=== PATIENT | female | born 1950 | race Caucasian/White ===

== ENCOUNTER 2016-06-22 21:39 | Emergency (ER) | payer MEDICARE, BC ==
[2016-06-22] MEDS ORDERED: MECLIZINE 12.5 MG TAB PO STA ×2 (22:31→23:24)
--- NOTE | 2016-06-22 22:57 | ED ---
General Adult HPI - General Chief complaint: Headache Stated complaint: Double Vision/Head Pain Time Seen by Provider: 06/22/16 22:16 Source: patient, family, RN notes reviewed Mode of arrival: ambulatory Limitations: no limitations - History of Present Illness Initial comments: 66-year-old female presenting for headache and dizziness. Patient states the symptoms been present for the past 2 weeks intermittently. She states dizziness is made worse when she lays down and closes her eyes. She states that she is also had some intermittent headaches. She denies any active headache at this time. Although she does state that she feels some mild sensation of her head spinning when she turns her head. She denies any chest pain or shortness of breath. She has seen her PCP twice in the last week for this. She is currently in the process of outpatient workup for cardiac evaluation. She denies any CP or SOB associated. She denies any history of significant medical problems. She does state that she takes number of herbal supplements. She also takes Seroquel daily. She states that she has had some episodes of nausea associated with her dizziness spells, but no vomiting. She states she tried a papaya supplement which seemed to help this. Her states she's been up and pacing because she feels nauseous when the episodes occur and he thinks she's having a panic attack. - Related Data Home Medications Medication Instructions Recorded Confirmed QUEtiapine [SEROquel] 75 mg PO HS 06/22/16 06/22/16 Previous Rx's Medication Instructions Recorded Meclizine [Antivert] 25 mg PO Q6HR PRN #16 tab 06/22/16 Ondansetron Odt [Zofran Odt] 4 mg PO Q8HR PRN #12 tab 06/22/16 Allergies Allergy/AdvReac Type Severity Reaction Status Date / Time codeine Allergy Unknown Verified 06/22/16 22:19 Iodinated Contrast Media - Allergy Unknown Verified 06/22/16 22:20 Oral and Review of Systems ROS Statement: Those systems with pertinent positive or pertinent negative responses have been documented in the HPI. ROS Other: All systems not noted in ROS Statement are negative. Past Medical History Past Medical History: Asthma Additional Past Medical History / Comment(s): emphysema History of Any Multi-Drug Resistant Organisms: None Reported Past Surgical History: Back Surgery, Hysterectomy Additional Past Surgical History / Comment(s): rhinoplasty, Past Psychological History: No Psychological Hx Reported Smoking Status: Never smoker Past Alcohol Use History: None Reported Past Drug Use History: None Reported General Exam - General Exam Comments Initial Comments: General: Awake and Alert. No acute distress. Does not appear acutely ill. Eyes: BEBETO, EOM intact. No nystagmus. No scleral icterus. HENT: Atraumatic, normocephalic. Mucous membranes moist. Trachea midline. Neck: The neck is supple, there is no tenderness or JVD. Cardiovascular: Regular rate and rhythm. No murmur, rub, or gallop is appreciated. Distal pulses intact. Respiratory: Lungs are clear to auscultation bilaterally. No wheezes, rales, rhonchi. No respiratory distress. Gastrointestinal: Soft, Nontender. No rebound or guarding. Non-distended. No masses or organomegaly noted. No CVA tenderness. Musculoskeletal: No tenderness. Normal ROM. No gross deformity. No strength deficits. Neurological: A&Ox3. CN II-XII grossly intact, There are no obvious motor or sensory deficits. Coordination appears grossly intact. Speech is normal. Normal gait. Skin: Skin is warm and dry and no rashes or lesions are noted. Psychiatric: Cooperative. Flat affect. Appears anxious. Limitations: no limitations Course Vital Signs 06/22/16 21:48 Temperature 97.4 F L Pulse Rate 80 Respiratory 16 Rate Blood Pressure 129/64 O2 Sat by Pulse 97 Oximetry Medical Decision Making - Medical Decision Making 66-year-old female presenting for intermittent headaches and dizziness. She denies any significant medical history. Vitals are stable, afebrile. She denies any fall or head injury. She denies any significant history concerning for intracranial bleed. She denies any family history of SAH. Patient with normal gait and no evidence of acute neurological deficits. She denies any visual changes at this time. Patient description of symptoms appear consistent with peripheral vertigo. She states most of these symptoms began to occur after she had ears irrigated for cerumen impaction in her PCPs office 2 weeks ago. She has no neurological deficits or gait disturbances concerning for central vertigo or CVA at this time. She also states takes number of herbal supplements. We had a discussion of uncertain ingredients in these types of medications and possible interactions with each other and her Seroquel. Patient has had workup by her PCP over the last 2 weeks. Exam is otherwise benign at this time. Discussed symptomatic management and recommended Valium as there is likely some anxiety component to this, but the patient "states I don 't want to be on those types of medications." Discussed Antivert which she agreed to. Pt was given this medication with improvement of her symptoms. Also given dose of Antivert and Zofran to take home so she can fill Rx in the morning. Discussed Tylenol or Motrin for headaches as needed. Patient otherwise appears stable and does not appear to require labs or imaging at this time. She states her PCP did lab work a few days ago and she states it was all normal. Discussed continued close follow-up with PCP. Discussed concerning signs symptoms for immediate return to the ED and that I will be here tomorrow for reevaluation if needed. Patient and are agreeable with plan and discharge home. Disposition Clinical Impression: Nonintractable headache, Dizziness Disposition: HOME SELF-CARE Condition: Stable Instructions: Acute Headache (ED), Dizziness (ED) Prescriptions: Meclizine [Antivert] 25 mg PO Q6HR PRN #16 tab PRN Reason: dizziness Ondansetron Odt [Zofran Odt] 4 mg PO Q8HR PRN #12 tab PRN Reason: Nausea Referrals: Nonstaff,Physician [Primary Care Provider] - 1-2 days Time of Disposition: 23:25
[2016-06-22] MEDS ORDERED: ONDANSETRON ODT 4 MG TAB PO STA (23:24)
[2016-06-22 23:32] VITALS: BP 128/67; PULSE 77; RESP 18; TEMP 96.8
== END 2016-06-22 23:32 | disposition home or self-care (01) ==
LOC: EC 21:39
DX: R51 Headache (principal); R42 Dizziness and giddiness; R11.0 Nausea; Z79.899 Other long term (current) drug therapy; Z88.5 Allergy status to narcotic agent; Z91.041 Radiographic dye allergy status
CPT/HCPCS: 99283

== ENCOUNTER 2021-02-28 05:48 | Emergency (ER) | payer MEDICARE ==
[2021-02-28] MEDS ORDERED: SODIUM CHLORIDE 0.9% 500 ML 500 ML IV STA (06:17)
[2021-02-28] MEDS ORDERED: ONDANSETRON 4 MG/2 ML VIAL IVP STA (06:17)
[2021-02-28] MEDS ORDERED: ALBUTEROL HFA INHALER INHALATION STA (06:24)
--- NOTE | 2021-02-28 06:26 | ED ---
General Adult HPI - General Chief complaint: Abdominal Pain Stated complaint: Abd.Pain,Nausa,Constipated Time Seen by Provider: 02/28/21 06:12 Source: patient, RN notes reviewed Mode of arrival: ambulatory Limitations: no limitations - History of Present Illness Initial comments: 71-year-old female presents emergency department tingling abdominal pain. She's been having increased abdominal pain last few days. Patient states she's felt constipated, having increased bloating, distention of her abdomen. She denies any fevers or chills denies any dysuria hematuria she's had prior hysterectomy. Patient states that the pain is in her lower abdomen denies any chest pain no fever patient states she has COPD which is severe. Patient denies any cough or URI symptoms. - Related Data Home Medications Medication Instructions Recorded Confirmed Acetaminophen Tab [Tylenol Tab] 1,000 mg PO Q6H PRN 02/28/21 02/28/21 Amoxicillin 1,000 mg PO ONCE 02/28/21 02/28/21 Ascorbic Acid [Vitamin C] 500 mg PO DAILY 02/28/21 02/28/21 Calcium Carbonate [Calcium] 600 mg PO DAILY 02/28/21 02/28/21 Cholecalciferol [Vitamin D3 (25 25 mcg PO DAILY 02/28/21 02/28/21 Mcg = 1000 Iu)] Cinnamon Bark [Cinnamon] 500 mg PO DAILY 02/28/21 02/28/21 Green Tea [place] Extract [Green Tea 150 mg PO DAILY 02/28/21 02/28/21 Extract] Melatonin [Melatonin Disolving] 12 mg PO HS 02/28/21 02/28/21 Multivitamins, Thera [Multivitamin 1 tab PO DAILY 02/28/21 02/28/21 (formulary)] [place]-3 Fatty Acids/Fish Oil [Fish 1 cap PO DAILY 02/28/21 02/28/21 Oil 1,000 mg Softgel] QUEtiapine [SEROquel] 25 mg PO HS 02/28/21 02/28/21 Ubidecarenone [Co Q-10] 100 mg PO DAILY 02/28/21 02/28/21 Zinc 50 mg PO DAILY 02/28/21 02/28/21 Allergies Allergy/AdvReac Type Severity Reaction Status Date / Time bee venom protein (honey bee) Allergy Anaphylaxis Verified 12/13/21 08:19 codeine Allergy Unknown Verified 02/28/21 08:19 Iodinated Contrast Media Allergy Unknown Verified 02/28/21 08:19 [Iodinated Contrast Media - Oral and] Review of Systems ROS Statement: Those systems with pertinent positive or pertinent negative responses have been documented in the HPI. ROS Other: All systems not noted in ROS Statement are negative. Past Medical History Past Medical History: Asthma, COPD Additional Past Medical History / Comment(s): emphysema History of Any Multi-Drug Resistant Organisms: None Reported Past Surgical History: Back Surgery, Hysterectomy Additional Past Surgical History / Comment(s): rhinoplasty, Past Psychological History: No Psychological Hx Reported Smoking Status: Never smoker Past Alcohol Use History: None Reported Past Drug Use History: None Reported General Exam Limitations: no limitations General appearance: alert, in no apparent distress Head exam: Present: atraumatic, normocephalic, normal inspection Eye exam: Present: normal appearance, PERRL, EOMI. Absent: scleral icterus, conjunctival injection, periorbital swelling ENT exam: Present: normal exam, mucous membranes moist Neck exam: Present: normal inspection. Absent: tenderness, meningismus, lymphadenopathy Respiratory exam: Present: wheezes. Absent: normal lung sounds bilaterally, r espiratory distress, rales, rhonchi, stridor Cardiovascular Exam: Present: regular rate, normal rhythm, normal heart sounds. Absent: systolic murmur, diastolic murmur, rubs, gallop, clicks GI/Abdominal exam: Present: soft, tenderness, normal bowel sounds. Absent: distended, guarding, rebound, rigid Course Vital Signs 02/28/21 02/28/21 02/28/21 05:53 07:51 08:46 Temperature 98.4 F 98.0 F Pulse Rate 96 80 96 Respiratory 20 16 16 Rate Blood Pressure 155/92 137/74 133/70 O2 Sat by Pulse 98 93 L 96 Oximetry Procedures - Rectal Disimpaction Consent Obtained: verbal consent Indication: fecal impaction Procedural Sedation: No Sedation/Analgesia: none Technique: manual disimpaction with gloved finger Result: significant stool output Complications: none Patient Tolerated Procedure: well, no complications Medical Decision Making - Medical Decision Making 71-year-old presented from for abdominal pain. CT showed evidence of constipation which is consistent with patient's history. Labs are essentially unremarkable. Patient did have enema, digital disimpaction patient was able to have bowel movement feels greatly improved will be discharged stable condition. - Lab Data Result diagrams: 02/28/21 06:58 02/28/21 06:58 Lab Results 02/28/21 02/28/21 02/28/21 Range/Units 06:58 06:58 06:58 WBC 11.8 H (3.8-10.6) k/uL RBC 5.43 H (3.80-5.40) m/uL Hgb 15.2 (11.4-16.0) gm/dL Hct 46.9 H (34.0-46.0) % MCV 86.3 (80.0-100.0) fL MCH 28.0 (25.0-35.0) pg MCHC 32.5 (31.0-37.0) g/dL RDW 13.9 (11.5-15.5) % Plt Count 272 (150-450) k/uL MPV 7.7 Neutrophils % 86 % Lymphocytes % 8 % Monocytes % 3 % Eosinophils % 1 % Basophils % 0 % Neutrophils # 10.2 H (1.3-7.7) k/uL Lymphocytes # 0.9 L (1.0-4.8) k/uL Monocytes # 0.4 (0-1.0) k/uL Eosinophils # 0.1 (0-0.7) k/uL Basophils # 0.0 (0-0.2) k/uL Sodium 139 (137-145) mmol/L Potassium 3.9 (3.5-5.1) mmol/L Chloride 101 (98-107) mmol/L Carbon Dioxide 31 H (22-30) mmol/L Anion Gap 7 mmol/L BUN 13 (7-17) mg/dL Creatinine 0.81 (0.52-1.04) mg/dL Est GFR (CKD-EPI)AfAm 86 (>60 ml/min/1.73 sqM) Est GFR (CKD-EPI)NonAf 74 (>60 ml/min/1.73 sqM) Glucose 118 H (74-99) mg/dL Plasma Lactic Acid [place] 1.1 (0.7-2.0) mmol/L Calcium 9.2 (8.4-10.2) mg/dL Total Bilirubin 1.6 H (0.2-1.3) mg/dL AST 28 (14-36) U/L ALT 23 (4-34) U/L Alkaline Phosphatase 78 (38-126) U/L Total Protein 6.9 (6.3-8.2) g/dL Albumin 4.0 (3.5-5.0) g/dL Amylase 62 (30-110) U/L Lipase 118 (23-300) U/L Disposition Clinical Impression: Constipation Disposition: HOME SELF-CARE Condition: Stable Instructions (If sedation given, give patient instructions): Constipation (ED) Additional Instructions: Please return to the Emergency Department if symptoms worsen or any other concerns. Is patient prescribed a controlled substance at d/c from ED?: No Referrals: Ana Maria Caraballo DO [Primary Care Provider] - 1-2 days Time of Disposition: 10:17
--- NOTE | 2021-02-28 07:08 | CT ---
EXAMINATION TYPE: CT abdomen pelvis wo con DATE OF EXAM: 02/28/2021 HISTORY: Abdominal pain, nausea, constipation CT DLP: 1051.4 mGycm. Automated Exposure Control for Dose Reduction was Utilized. TECHNIQUE: CT scan of the abdomen and pelvis is performed without oral or IV contrast. COMPARISON: NONE FINDINGS: Within the limitations of a non-contrast study, the following observations are made. LUNG BASES: Mild left greater than right bibasilar linear scarring and/or atelectasis. LIVER/GB: Multiple calcified dependent gallstones. No surrounding inflammatory change to suggest acut e cholecystitis. PANCREAS: No significant abnormality is seen. SPLEEN: No significant abnormality is seen. 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 KIDNEYS: No renal stones or hydronephrosis seen bilaterally. BOWEL: Small-sized hiatal hernia. Suboptimal evaluation bowel without enteric contrast. No suspicious small or large bowel dilatation. Fairly moderate diffuse colonic fecal prominence. Occasional scatte red colonic diverticula. No CT evidence for acute diverticulitis. Normal-appearing appendix from base of cecum. GENITAL ORGANS: Uterus surgically absent. Few scattered calcified pelvic phleboliths. LYMPH NODES: No greater than 1cm abdominal or pelvic lymph nodes are appreciated. OSSEOUS STRUCTURES: Moderate spurring throughout the lumbar spine. Moderate to severe disc space narr owing L4-L5 level. Prominent Schmorl node superior L2 endplate. Sacralized right L5 segment. Multilev el facet arthropathy in the lumbar spine. Moderate axial joint space loss and spurring in both hips. Pubic symphysis narrowing and spurring. OTHER: Moderate calcified plaque of the aorta extends into branch vessels. IMPRESSION: No bowel obstruction. Moderate diffuse colonic fecal stasis is present.
[2021-02-28 07:15] LABS: Basophils % (A) 0 %; Eosinophils # (A) 0.1 k/uL (0-0.7); Eosinophils % (A) 1 %; HCT 46.9 % (34.0-46.0); HGB 15.2 gm/dL (11.4-16.0); Lymphocytes # (A) 0.9 k/uL (1.0-4.8); Lymphocytes % (A) 8 %; MCHC 32.5 g/dL (31.0-37.0); MCV 86.3 fL (80.0-100.0); Mean Platelet Volume 7.7; Monocytes # (A) 0.4 k/uL (0-1.0); Monocytes % (A) 3 %; Neutrophils # (A) 10.2 k/uL (1.3-7.7); Neutrophils % (A) 86 %; Platelet Count 272 k/uL (150-450); RBC 5.43 m/uL (3.80-5.40); RDW 13.9 % (11.5-15.5); WBC 11.8 k/uL (3.8-10.6)
[2021-02-28 07:33] LABS: Calcium 9.2 mg/dL (8.4-10.2); Potassium 3.9 mmol/L (3.5-5.1); Total Bilirubin 1.6 mg/dL (0.2-1.3); Total Protein 6.9 g/dL (6.3-8.2)
[2021-02-28 07:53] VITALS: RESP 16; TEMP 98
[2021-02-28 11:16] VITALS: BP 149/78; PULSE 99
== END 2021-02-28 11:07 | disposition home or self-care (01) ==
LOC: EC 05:48
DX: K59.00 Constipation, unspecified (principal); J44.9 Chronic obstructive pulmonary disease, unspecified
CPT/HCPCS: 36415; 80053; 82150; 83605; 83690; 85025; 74176; 99284; 96374; J2405

== ENCOUNTER 2021-06-17 20:08 | Emergency (ER) | payer MEDICARE ==
[2021-06-18 01:46] VITALS: RESP 18; TEMP 97.3
[2021-06-18 01:59] LABS: Basophils % (A) 1 %; Eosinophils # (A) 0.1 k/uL (0-0.7); Eosinophils % (A) 2 %; HCT 50.5 % (34.0-46.0); HGB 16.3 gm/dL (11.4-16.0); Lymphocytes # (A) 1.5 k/uL (1.0-4.8); Lymphocytes % (A) 19 %; MCH 28.1 pg (25.0-35.0); MCHC 32.4 g/dL (31.0-37.0); MCV 86.6 fL (80.0-100.0); Mean Platelet Volume 7.6; Monocytes # (A) 0.4 k/uL (0-1.0); Monocytes % (A) 5 %; Neutrophils # (A) 5.6 k/uL (1.3-7.7); Neutrophils % (A) 71 %; Platelet Count 279 k/uL (150-450); RBC 5.82 m/uL (3.80-5.40); RDW 14.1 % (11.5-15.5); WBC 7.8 k/uL (3.8-10.6)
--- NOTE | 2021-06-18 02:08 | XR ---
EXAMINATION TYPE: XR KUB DATE OF EXAM: 06/18/2021 COMPARISON: NONE HISTORY: Pain TECHNIQUE: 2 views upright FINDINGS: There is no sign of intestinal obstruction or pneumoperitoneum. There are numerous calcifie d gallstones. There is no evidence of a mass. There is some mild pleural reaction at the lateral left lung base. IMPRESSION: Nonacute abdomen. Cholelithiasis.
[2021-06-18 02:15] LABS: Albumin 4.3 g/dL (3.5-5.0); Calcium 9.1 mg/dL (8.4-10.2); Total Bilirubin 1.8 mg/dL (0.2-1.3); Total Protein 7.6 g/dL (6.3-8.2)
[2021-06-18 04:51] LABS: Appearance,Urine Cloudy (Clear); Bacteria,Urine Many /hpf; Bilirubin,Urine Negative (Negative); Blood,Urine Negative (Negative); Color,Urine Yellow; Glucose,Urine (UA) Negative (Negative); Hyaline Casts,Urine 1 /lpf (0-2); Ketones,Urine Negative (Negative); Leukocyte Esterase,Urine Moderate (Negative); Mucus,Urine Moderate /hpf; Nitrite,Urine Negative (Negative); Protein,Urine Negative (Negative); RBC,Urine 3 /hpf (0-5); Specific Gravity,Urine 1.013 (1.001-1.035); Squamous Epithelial Cell,Urine 15 /hpf (0-4); Urobilinogen,Urine <2.0 mg/dL (<2.0); WBC,Urine 6 /hpf (0-5)
--- NOTE | 2021-06-18 05:17 | ED ---
General Adult HPI - General Chief complaint: Back Pain/Injury Stated complaint: Abd.Pain Time Seen by Provider: 06/18/21 04:56 Source: patient Mode of arrival: wheelchair - History of Present Illness Initial comments: This patient is a 71-year-old woman with history of previous constipation requiring disimpaction, who presents with complaint that she states it is a recurrence. She is having low abdomen and low back pain. She describes it as cramping and bloating. She feels like she needs to pass a bowel movement but has not been able. Last bowel movement was prior to last Sunday. She did see her physician and they are giving her MiraLAX. She states it's not helping. She does pass gas. While waiting to be seen here she did have some nausea and vomited once. -: days(s) Location: back, abdomen Radiation: non-radiation Quality: other (Bloating and cramping) Consistency: intermittent Improves with: none Worsens with: none Associated Symptoms: denies other symptoms Treatments Prior to Arrival: none - Related Data Home Medications Medication Instructions Recorded Confirmed Acetaminophen Tab [Tylenol Tab] 1,000 mg PO Q6H PRN 02/28/21 02/28/21 Amoxicillin 1,000 mg PO ONCE 02/28/21 02/28/21 Ascorbic Acid [Vitamin C] 500 mg PO DAILY 02/28/21 02/28/21 Calcium Carbonate [Calcium] 600 mg PO DAILY 02/28/21 02/28/21 Cholecalciferol [Vitamin D3 (25 25 mcg PO DAILY 02/28/21 02/28/21 Mcg = 1000 Iu)] Cinnamon Bark [Cinnamon] 500 mg PO DAILY 02/28/21 02/28/21 Green Tea [place] Extract [Green Tea 150 mg PO DAILY 02/28/21 02/28/21 Extract] Melatonin [Melatonin Disolving] 12 mg PO HS 02/28/21 02/28/21 Multivitamins, Thera [Multivitamin 1 tab PO DAILY 02/28/21 02/28/21 (formulary)] [place]-3 Fatty Acids/Fish Oil [Fish 1 cap PO DAILY 02/28/21 02/28/21 Oil 1,000 mg Softgel] QUEtiapine [SEROquel] 25 mg PO HS 02/28/21 02/28/21 Ubidecarenone [Co Q-10] 100 mg PO DAILY 02/28/21 02/28/21 Zinc 50 mg PO DAILY 02/28/21 02/28/21 Allergies Allergy/AdvReac Type Severity Reaction Status Date / Time bee venom protein (honey bee) Allergy Anaphylaxis Verified 02/28/21 08:19 codeine Allergy Unknown Verified 02/28/21 08:19 Iodinated Contrast Media Allergy Unknown Verified 02/28/21 08:19 [Iodinated Contrast Media - Oral and] Review of Systems ROS Statement: Those systems with pertinent positive or pertinent negative responses have been documented in the HPI. ROS Other: All systems not noted in ROS Statement are negative. Constitutional: Denies: fever, chills Respiratory: Denies: cough, dyspnea Cardiovascular: Denies: chest pain, palpitations Gastrointestinal: Reports: as per HPI, abdominal pain, nausea, vomiting, constipation. Denies: melena, hematochezia Genitourinary: Denies: dysuria, frequency, hematuria Musculoskeletal: Reports: as per HPI, back pain Skin: Denies: rash Neurological: Denies: headache Past Medical History Past Medical History: Asthma, COPD Additional Past Medical History / Comment(s): emphysema History of Any Multi-Drug Resistant Organisms: None Reported Past Surgical History: Back Surgery, Hysterectomy Additional Past Surgical History / Comment(s): rhinoplasty, Past Psychological History: No Psychological Hx Reported Smoking Status: Never smoker Past Alcohol Use History: None Reported Past Drug Use History: None Reported General Exam General appearance: alert, in no apparent distress Head exam: Present: atraumatic, normocephalic Eye exam: Present: normal appearance. Absent: scleral icterus, conjunctival injection Respiratory exam: Present: normal lung sounds bilaterally. Absent: respiratory distress, wheezes, rales, rhonchi Cardiovascular Exam: Present: regular rate, normal rhythm, normal heart sounds. Absent: systolic murmur, diastolic murmur, rubs, gallop GI/Abdominal exam: Present: soft. Absent: distended, tenderness, guarding, rebound, rigid, mass, pulsatile mass, hernia Rectal exam: Present: normal inspection, normal rectal tone, fecal impaction. Absent: hemorrhoids, mass, tenderness Extremities exam: Present: normal inspection Back exam: Present: normal inspection Neurological exam: Present: alert Skin exam: Present: warm, dry, intact, normal color. Absent: rash Course Vital Signs 06/17/21 06/18/2106/18/22 21:37 01:45 06:37 Temperature 97.8 F 97.3 F L Pulse Rate 97 98 89 Respiratory 16 18 18 Rate Blood Pressure 151/81 166/84 145/87 O2 Sat by Pulse 94 L 97 95 Oximetry Medical Decision Making - Medical Decision Making Patient is 71-year-old woman here with constipation. I did perform a bedside disimpaction with nursing present as intrusion analyst. Following this patient had an enema with further stool passed following the enema. She is feeling better and would like to go home. Did provide additional oral medication for home use. Discussed appropriate further care and follow-up as well as return parameters - Lab Data Result diagrams: 06/18/21 01:45 06/18/21 01:45 Lab Results 06/18/21 06/18/21 06/18/21 Range/Units 01:45 01:45 04:05 WBC 7.8 (3.8-10.6) k/uL RBC 5.82 H (3.80-5.40) m/uL Hgb 16.3 H (11.4-16.0) gm/dL Hct 50.5 H (34.0-46.0) % MCV 86.6 (80.0-100.0) fL MCH 28.1 (25.0-35.0) pg MCHC 32.4 (31.0-37.0) g/dL RDW 14.1 (11.5-15.5) % Plt Count 279 (150-450) k/uL MPV 7.6 Neutrophils % 71 % Lymphocytes % 19 % Monocytes % 5 % Eosinophils % 2 % Basophils % 1 % Neutrophils # 5.6 (1.3-7.7) k/uL Lymphocytes # 1.5 (1.0-4.8) k/uL Monocytes # 0.4 (0-1.0) k/uL Eosinophils # 0.1 (0-0.7) k/uL Basophils # 0.0 (0-0.2) k/uL Sodium 139 (137-145) mmol/L Potassium 4.0 (3.5-5.1) mmol/L Chloride 105 (98-107) mmol/L Carbon Dioxide 26 (22-30) mmol/L Anion Gap 8 mmol/L BUN 11 (7-17) mg/dL Creatinine 0.81 (0.52-1.04) mg/dL Est GFR (CKD-EPI)AfAm 86 (>60 ml/min/1.73 sqM) Est GFR (CKD-EPI)NonAf 74 (>60 ml/min/1.73 sqM) Glucose 103 H (74-99) mg/dL Calcium 9.1 (8.4-10.2) mg/dL Total Bilirubin 1.8 H (0.2-1.3) mg/dL AST 30 (14-36) U/L ALT 27 (4-34) U/L Alkaline Phosphatase 79 (38-126) U/L Total Protein 7.6 (6.3-8.2) g/dL Albumin 4.3 (3.5-5.0) g/dL Urine Color Yellow Urine Appearance Cloudy H (Clear) Urine pH 6.0 (5.0-8.0) Ur Specific [place] 1.013 (1.001-1.035) Urine Protein Negative (Negative) Urine Glucose (UA) Negative (Negative) Urine Ketones Negative (Negative) Urine Blood Negative (Negative) Urine Nitrite Negative (Negative) Urine Bilirubin Negative (Negative) Urine Urobilinogen <2.0 (<2.0) mg/dL Ur Leukocyte Esterase Moderate H (Negative) Urine RBC 3 (0-5) /hpf Urine WBC 6 H (0-5) /hpf Ur Squamous Epith Cells 15 H (0-4) /hpf Urine Bacteria Many H (None) /hpf Hyaline Casts 1 (0-2) /lpf Urine Mucus Moderate H (None) /hpf Disposition Clinical Impression: Constipation Disposition: HOME SELF-CARE Condition: Good Instructions (If sedation given, give patient instructions): Constipation (ED) Is patient prescribed a controlled substance at d/c from ED?: No Referrals: Ana Maria Caraballo DO [Primary Care Provider] - 1-2 days Time of Disposition: 06:05
[2021-06-18] MEDS ORDERED: PEG 3350-NA SULF,BICARB,CL/KCL 4,000 ML BOTTLE PO ONE (06:10)
[2021-06-18 06:38] VITALS: BP 145/87; PULSE 89
== END 2021-06-18 06:38 | disposition home or self-care (01) ==
LOC: EC 20:08
DX: K59.00 Constipation, unspecified (principal); J44.9 Chronic obstructive pulmonary disease, unspecified; Z79.899 Other long term (current) drug therapy
CPT/HCPCS: 36415; 74018; 80053; 81001; 85025; 99284

== ENCOUNTER 2021-09-02 09:07 | Emergency (ER) | payer MEDICARE ==
[2021-09-02 09:12] VITALS: TEMP 98.3
[2021-09-02] MEDS ORDERED: METOCLOPRAMIDE 5 MG/ML 2 ML VIAL IVP STA (10:08)
[2021-09-02] MEDS ORDERED: SODIUM CHLORIDE 0.9% 1,000 ML IV STA (10:08)
[2021-09-02] MEDS ORDERED: diphenhydrAMINE 50 MG/ML 1 ML VIAL IVP STA (10:08)
--- NOTE | 2021-09-02 10:11 | ED ---
General Adult HPI - General Chief complaint: Headache Stated complaint: Headache Time Seen by Provider: 09/02/21 09:37 Source: patient, RN notes reviewed Mode of arrival: ambulatory Limitations: no limitations - History of Present Illness Initial comments: Patient is a pleasant 71-year-old female presenting to the emergency Department with headache. Onset of symptoms was around 3:30 or 4 in the morning when she woke from sleep. Headache is 7/10. Mild nausea. Mild photophobia. No history of chronic headaches. Patient does have some paresthesias of her right thumb. Patient is able to move it without difficulty. No loss of sensation. No weak ness. - Related Data Home Medications Medication Instructions Recorded Confirmed Calcium Carbonate [Calcium] 600 mg PO DAILY 02/28/21 09/02/21 Cinnamon Bark [Cinnamon] 500 mg PO DAILY 02/28/21 09/02/21 Green Tea [place] Extract [Green Tea 150 mg PO DAILY 02/28/21 09/02/21 Extract] Multivitamins, Thera [Multivitamin 1 tab PO DAILY 02/28/21 09/02/21 (formulary)] [place]-3 Fatty Acids/Fish Oil [Fish 1 cap PO DAILY 02/28/21 09/02/21 Oil 1,000 mg Softgel] QUEtiapine [SEROquel] 25 - 50 mg PO HS 02/28/21 09/02/21 Ubidecarenone [Co Q-10] 100 mg PO DAILY 02/28/21 09/02/21 Allergies Allergy/AdvReac Type Severity Reaction Status Date / Time bee venom protein (honey bee) Allergy Anaphylaxis Verified 09/02/21 10:09 codeine Allergy Unknown Verified 09/02/21 10:09 Iodinated Contrast Media Allergy Unknown Verified 09/02/21 10:09 [Iodinated Contrast Media - Oral and] Review of Systems ROS Statement: Those systems with pertinent positive or pertinent negative responses have been documented in the HPI. ROS Other: All systems not noted in ROS Statement are negative. Constitutional: Denies: fever Eyes: Denies: eye pain ENT: Denies: ear pain Respiratory: Denies: cough Cardiovascular: Denies: chest pain Endocrine: Denies: fatigue Gastrointestinal: Denies: abdominal pain Genitourinary: Denies: dysuria Musculoskeletal: Denies: back pain Skin: Denies: rash Neurological: Reports: as per HPI, headache, paresthesias. Denies: weakness Past Medical History Past Medical History: Asthma, COPD Additional Past Medical History / Comment(s): emphysema History of Any Multi-Drug Resistant Organisms: None Reported Past Surgical History: Back Surgery, Hysterectomy Additional Past Surgical History / Comment(s): rhinoplasty, Past Psychological History: No Psychological Hx Reported Smoking Status: Never smoker Past Alcohol Use History: None Reported Past Drug Use History: None Reported General Exam Limitations: no limitations General appearance: alert, in no apparent distress Head exam: Present: atraumatic Eye exam: Present: normal appearance, PERRL, EOMI ENT exam: Present: normal oropharynx Neck exam: Present: normal inspection Respiratory exam: Present: normal lung sounds bilaterally Cardiovascular Exam: Present: regular rate, normal rhythm GI/Abdominal exam: Present: soft. Absent: tenderness Extremities exam: Present: normal inspection Neurological exam: Present: alert, oriented X3, CN II-XII intact. Absent: motor sensory deficit Expanded Neurological exam: Present: protecting the airway Patient oriented to: Present: person, place, time Speech: Present: fluid speech Cranial nerves: EOM's Intact: Normal, Facial Sensation: Normal Sensory exam: Upper Extremity Light Touch: Normal, Lower Extremity Light Touch: Normal Motor strength exam: RUE: 5, LUE: 5, RLE: 5, LLE: 5 Eye Response: (4) open spontaneously Motor Response: (6) obeys commands Verbal Response: (5) oriented Psychiatric exam: Present: normal affect, normal mood Skin exam: Present: normal color Course Vital Signs 09/02/21 09:10 Temperature 98.3 F Pulse Rate 101 H Respiratory 16 Rate Blood Pressure 143/78 O2 Sat by Pulse 93 L Oximetry - Reevaluation(s) Reevaluation #1: 09/02/21 10:[address] angiogram with contrast however patient refuses. Patient states she has severe ALLERGY. Patient offered premedication however still refuses. Medical Decision Making - Medical Decision Making Patient reevaluated. Patient states symptoms approximately 50% improved with medications. Patient updated with results. Patient also updated on limitations of results. Patient is made aware of limitations specifically CT scan. Patient is made aware that blockage and evaluation of arteries including aneurysm is limited with regular CT. Patient is offered lumbar puncture however refuses. Patient still refuses CTA. Patient also refuses sedimentation rate. Lab did not have enough blood work and was going to redraw. Patient states he is feeling much better and does request discharge home. - Lab Data Result diagrams: 09/02/21 10:44 09/02/21 10:44 Lab Results 09/02/21 09/02/21 Range/Units 10:44 10:44 WBC 7.8 (3.8-10.6) k/uL RBC 5.36 (3.80-5.40) m/uL Hgb 14.9 (11.4-16.0) gm/dL Hct 46.2 H (34.0-46.0) % MCV 86.2 (80.0-100.0) fL MCH 27.8 (25.0-35.0) pg MCHC 32.3 (31.0-37.0) g/dL RDW 13.9 (11.5-15.5) % Plt Count 297 (150-450) k/uL MPV 7.5 Neutrophils % 76 % Lymphocytes % 12 % Monocytes % 6 % Eosinophils % 3 % Basophils % 1 % Neutrophils # 6.0 (1.3-7.7) k/uL Lymphocytes # 1.0 (1.0-4.8) k/uL Monocytes # 0.5 (0-1.0) k/uL Eosinophils # 0.2 (0-0.7) k/uL Basophils # 0.1 (0-0.2) k/uL Sodium 137 (137-145) mmol/L Potassium 4.9 (3.5-5.1) mmol/L Chloride 106 (98-107) mmol/L Carbon Dioxide 25 (22-30) mmol/L Anion Gap 6 mmol/L BUN 14 (7-17) mg/dL Creatinine 0.87 (0.52-1.04) mg/dL Est GFR (CKD-EPI)AfAm 78 (>60 ml/min/1.73 sqM) Est GFR (CKD-EPI)NonAf 68 (>60 ml/min/1.73 sqM) Glucose 114 H (74-99) mg/dL Calcium 9.3 (8.4-10.2) mg/dL Total Bilirubin 1.4 H (0.2-1.3) mg/dL AST 28 (14-36) U/L ALT 26 (4-34) U/L Alkaline Phosphatase 81 (38-126) U/L Total Protein 6.7 (6.3-8.2) g/dL Albumin 4.0 (3.5-5.0) g/dL - Radiology Data Radiology results: report reviewed (CT brain reveals no acute abnormality. Atrophy.) Disposition Clinical Impression: Cephalgia Disposition: HOME SELF-CARE Condition: Stable Instructions (If sedation given, give patient instructions): Acute Headache (ED) Additional Instructions: Please do follow-up to primary care physician in the next day or 2 for recheck. Return for increased headache, weakness, loss of sensation, vomiting, fever, worsening or changing symptoms or other concerns. Is patient prescribed a controlled substance at d/c from ED?: No Referrals: Ana Maria Caraballo DO [Primary Care Provider] - 1-2 days Time of Disposition: 11:33
[2021-09-02 10:55] LABS: Basophils # (A) 0.1 k/uL (0-0.2); Basophils % (A) 1 %; Eosinophils # (A) 0.2 k/uL (0-0.7); Eosinophils % (A) 3 %; HCT 46.2 % (34.0-46.0); HGB 14.9 gm/dL (11.4-16.0); Lymphocytes % (A) 12 %; MCH 27.8 pg (25.0-35.0); MCHC 32.3 g/dL (31.0-37.0); MCV 86.2 fL (80.0-100.0); Mean Platelet Volume 7.5; Monocytes # (A) 0.5 k/uL (0-1.0); Monocytes % (A) 6 %; Neutrophils % (A) 76 %; Platelet Count 297 k/uL (150-450); RBC 5.36 m/uL (3.80-5.40); RDW 13.9 % (11.5-15.5); WBC 7.8 k/uL (3.8-10.6)
--- NOTE | 2021-09-02 11:02 | CT ---
EXAMINATION TYPE: CT brain wo con DATE OF EXAM: 09/02/2021 COMPARISON: None HISTORY: 71-year-old female Headache and dizziness. TECHNIQUE: Examination was done in axial plane without intravenous contrast. Coronal and sagittal r econstructions performed. CT DLP: 1099.4 mGycm Automated exposure control for dose reduction was used. FINDINGS: There is no evidence of acute intracranial hemorrhage, acute ischemic changes, mass, mass-effect, or extra-axial fluid collection. There is no effacement of cerebral sulci or basal subarachnoid cister ns. There is no hydrocephalus. There is no midline shift. Cox-white matter distinction is preserv ed. Mild age-related generalized parenchymal volume loss. Mild periventricular white matter hypodensities . Paranasal sinuses and mastoid air cells are well pneumatized. Orbits and globes are intact. IMPRESSION: Mild age-related cerebral atrophy and mild burden of chronic small vessel ischemic disease. No acute intracranial abnormality seen.
[2021-09-02 11:07] LABS: Calcium 9.3 mg/dL (8.4-10.2); Potassium 4.9 mmol/L (3.5-5.1); Total Bilirubin 1.4 mg/dL (0.2-1.3); Total Protein 6.7 g/dL (6.3-8.2)
[2021-09-02 11:51] VITALS: BP 154/95; PULSE 89; RESP 18
[2021-09-02 12:15] LABS: Erythrocyte Sedimentation Rate 12 mm/hr (0-20)
== END 2021-09-02 11:51 | disposition home or self-care (01) ==
LOC: EC 09:07
DX: R51.9 Headache, unspecified (principal); R11.0 Nausea; H53.149 Visual discomfort, unspecified; J43.9 Emphysema, unspecified; Z91.030 Bee allergy status; Z88.5 Allergy status to narcotic agent; Z91.041 Radiographic dye allergy status
CPT/HCPCS: 36415; 80053; 85652; 85025; 85730; 70450; 99284; 96374; 96375; 96361; J1200; J2765

== ENCOUNTER 2021-11-04 14:30 | Emergency (ER) | payer MEDICARE ==
[2021-11-04] MEDS ORDERED: ONDANSETRON ODT 8 MG TAB.RAPDIS PO STA (16:05)
--- NOTE | 2021-11-04 16:11 | ED ---
Abdominal Pain HPI - General Chief Complaint: Abdominal Pain Stated Complaint: Abd Pain Time Seen by Provider: 11/04/21 15:50 Source: patient Mode of arrival: wheelchair - History of Present Illness Initial Comments: Patient is a 71-year-old female presents the emergency room with sudden onset of epigastric and right upper quadrant pain that began a few hours ago. She complains of nausea without emesis. She reports that her pain is radiating to her back. She has known gallstone history but denies having an infected gallbladder having her gallbladder removed in the past. She denies any aggravating or alleviating factors. She doesn't took a dose of Compazine orally at home with no improvement in symptoms. She denies any changes in bowel movements, bloody stools, unintentional weight loss, chest pain, shortness of breath, headaches, dizziness, lethargy, confusion, fevers or chills. She has a past medical history significant for COPD and asthma. She does not take any medications except for Seroquel for insomnia on a regular basis. - Related Data Home Medications Medication Instructions Recorded Confirmed Calcium Carbonate [Calcium] 600 mg PO DAILY 02/28/21 09/02/21 Cinnamon Bark [Cinnamon] 500 mg PO DAILY 02/28/21 09/02/21 Green Tea [place] Extract [Green Tea 150 mg PO DAILY 02/28/21 09/02/21 Extract] Multivitamins, Thera [Multivitamin 1 tab PO DAILY 02/28/21 09/02/21 (formulary)] [place]-3 Fatty Acids/Fish Oil [Fish 1 cap PO DAILY 02/28/21 09/02/21 Oil 1,000 mg Softgel] QUEtiapine [SEROquel] 25 - 50 mg PO HS 02/28/21 09/02/21 Ubidecarenone [Co Q-10] 100 mg PO DAILY 02/28/21 09/02/21 Allergies Allergy/AdvReac Type Severity Reaction Status Date / Time bee venom protein (honey bee) Allergy Anaphylaxis Verified 11/04/21 15:05 codeine Allergy Unknown Verified 11/04/21 15:05 Iodinated Contrast Media Allergy Unknown Verified 11/04/21 15:05 [Iodinated Contrast Media - Oral and] Review of Systems ROS Statement: Those systems with pertinent positive or pertinent negative responses have been documented in the HPI. ROS Other: All systems not noted in ROS Statement are negative. Past Medical History Past Medical History: Asthma, COPD Additional Past Medical History / Comment(s): emphysema History of Any Multi-Drug Resistant Organisms: None Reported Past Surgical History: Back Surgery, Hysterectomy Additional Past Surgical History / Comment(s): rhinoplasty, Past Psychological History: No Psychological Hx Reported Smoking Status: Never smoker Past Alcohol Use History: None Reported Past Drug Use History: None Reported General Exam General appearance: alert, in no apparent distress Head exam: Present: atraumatic, normocephalic, normal inspection Eye exam: Present: normal appearance, PERRL, EOMI. Absent: scleral icterus, conjunctival injection, periorbital swelling ENT exam: Present: normal exam, mucous membranes moist Neck exam: Present: normal inspection. Absent: tenderness, meningismus, lymphadenopathy Respiratory exam: Present: normal lung sounds bilaterally. Absent: respiratory distress, wheezes, rales, rhonchi, stridor Cardiovascular Exam: Present: regular rate, normal rhythm, normal heart sounds. Absent: systolic murmur, diastolic murmur, rubs, gallop, clicks GI/Abdominal exam: Present: soft, tenderness (Right upper quadrant and epigastric region), normal bowel sounds. Absent: distended, guarding, rebound, rigid Extremities exam: Present: normal inspection, full ROM, normal capillary refill. Absent: tenderness, pedal edema, joint swelling, calf tenderness Back exam: Present: normal inspection Neurological exam: Present: alert, oriented X3, CN II-XII intact Psychiatric exam: Present: normal affect, normal mood Skin exam: Present: warm, dry, intact, normal color. Absent: rash Course Vital Signs 11/04/21 15:02 Temperature 97.4 F L Pulse Rate 83 Respiratory 16 Rate Blood Pressure 148/71 O2 Sat by Pulse 99 Oximetry Medical Decision Making - Medical Decision Making 71-year-old male presenting to the emergency room with sudden onset of right upper quadrant and epigastric region pain with nausea without emesis. EKG completed in triage. Symptoms discussed with patient. Patient with known gallbladder and previous history of infected constipation. Will check CMP, amylase, lipase, CBC, urinalysis along with CT of the abdomen. Will give Zofran IV for nausea and monitor symptoms. 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 Still with nausea and abdominal pain after Zofran. Computed tomography scan revealed gallstones along with old L2 fracture. Mild elevation in WBCs noted with leukocytosis and rare bacteria noted on urinalysis awaiting CMP results. Will give morphine along with Compazine IV. Symptoms improved with morphine and Compazine. Labs revealed elevated bilirubin, elevated liver enzymes and elevated alk phos. Troponin negative. Lactic acid added. Concern for ductal cholelithiasis. No GI services available here. Discussed concerns with patient and spouse. Patient went for ER toER transfer for GI services at [facility]. Will give a dose of Ancef now and monitor unti l transfer. Case discussed with Dr. Childress. Dr. Harrington accepting physician at [facility] ER. - Lab Data Result diagrams: 11/04/21 16:19 11/04/21 16:19 Lab Results 11/04/21 11/04/21 11/04/21 Range/Units 16:19 16:19 16:19 WBC 13.8 H (3.8-10.6) k/uL RBC 5.99 H (3.80-5.40) m/uL Hgb 16.0 (11.4-16.0) gm/dL Hct 52.4 H (34.0-46.0) % MCV 87.4 (80.0-100.0) fL MCH 26.7 (25.0-35.0) pg MCHC 30.5 L (31.0-37.0) g/dL RDW 13.6 (11.5-15.5) % Plt Count 267 (150-450) k/uL MPV 8.0 Neutrophils % 94 % Lymphocytes % 3 % Monocytes % 2 % Eosinophils % 0 % Basophils % 0 % Neutrophils # 13.0 H (1.3-7.7) k/uL Lymphocytes # 0.5 L (1.0-4.8) k/uL Monocytes # 0.3 (0-1.0) k/uL Eosinophils # 0.0 (0-0.7) k/uL Basophils # 0.0 (0-0.2) k/uL Sodium 139 (137-145) mmol/L Potassium 4.5 (3.5-5.1) mmol/L Chloride 100 (98-107) mmol/L Carbon Dioxide 24 (22-30) mmol/L Anion Gap 15 mmol/L BUN 16 (7-17) mg/dL Creatinine 0.76 (0.52-1.04) mg/dL Est GFR (CKD-EPI)AfAm >90 (>60 ml/min/1.73 sqM) Est GFR (CKD-EPI)NonAf 80 (>60 ml/min/1.73 sqM) Glucose 157 H (74-99) mg/dL Calcium 10.1 (8.4-10.2) mg/dL Total Bilirubin 3.0 H (0.2-1.3) mg/dL AST 495 H (14-36) U/L ALT 300 H (4-34) U/L Alkaline Phosphatase 153 H (38-126) U/L Troponin I (0.000-0.034) ng/mL Total Protein 7.5 (6.3-8.2) g/dL Albumin 4.5 (3.5-5.0) g/dL Amylase 73 (30-110) U/L Lipase 189 (23-300) U/L Urine Color Yellow Urine Appearance Cloudy H (Clear) Urine pH 7.0 (5.0-8.0) Ur Specific [place] 1.028 (1.001-1.035) Urine Protein Trace H (Negative) Urine Glucose (UA) Negative (Negative) Urine Ketones 1+ H (Negative) Urine Blood Negative (Negative) Urine Nitrite Negative (Negative) Urine Bilirubin Negative (Negative) Urine Urobilinogen 2.0 (<2.0) mg/dL Ur Leukocyte Esterase Small H (Negative) Urine RBC 3 (0-5) /hpf Urine WBC 2 (0-5) /hpf Ur Squamous Epith Cells 42 H (0-4) /hpf Urine Bacteria Rare H (None) /hpf Urine Mucus Occasional H (None) /hpf 11/04/21 Range/Units 17:08 WBC (3.8-10.6) k/uL RBC (3.80-5.40) m/uL Hgb (11.4-16.0) gm/dL Hct (34.0-46.0) % MCV (80.0-100.0) fL MCH (25.0-35.0) pg MCHC (31.0-37.0) g/dL RDW (11.5-15.5) % Plt Count (150-450) k/uL MPV Neutrophils % % Lymphocytes % % Monocytes % % Eosinophils % % Basophils % % Neutrophils # (1.3-7.7) k/uL Lymphocytes # (1.0-4.8) k/uL Monocytes # (0-1.0) k/uL Eosinophils # (0-0.7) k/uL Basophils # (0-0.2) k/uL Sodium (137-145) mmol/L Potassium (3.5-5.1) mmol/L Chloride (98-107) mmol/L Carbon Dioxide (22-30) mmol/L Anion Gap mmol/L BUN (7-17) mg/dL Creatinine (0.52-1.04) mg/dL Est GFR (CKD-EPI)AfAm (>60 ml/min/1.73 sqM) Est GFR (CKD-EPI)NonAf (>60 ml/min/1.73 sqM) Glucose (74-99) mg/dL Calcium (8.4-10.2) mg/dL Total Bilirubin (0.2-1.3) mg/dL AST (14-36) U/L ALT (4-34) U/L Alkaline Phosphatase (38-126) U/L Troponin I <0.012 (0.000-0.034) ng/mL Total Protein (6.3-8.2) g/dL Albumin (3.5-5.0) g/dL Amylase (30-110) U/L Lipase (23-300) U/L Urine Color Urine Appearance (Clear) Urine pH (5.0-8.0) Ur Specific [place] (1.001-1.035) Urine Protein (Negative) Urine Glucose (UA) (Negative) Urine Ketones (Negative) Urine Blood (Negative) Urine Nitrite (Negative) Urine Bilirubin (Negative) Urine Urobilinogen (<2.0) mg/dL Ur Leukocyte Esterase (Negative) Urine RBC (0-5) /hpf Urine WBC (0-5) /hpf Ur Squamous Epith Cells (0-4) /hpf Urine Bacteria (None) /hpf Urine Mucus (None) /hpf - EKG Data EKG Comments: Sinus rhythm with right bundle tommy block, possible old anterior myocardial infarct, ventricular rate 80 bpm, MN interval 197 ms, QRS duration 142 ms, QT/QTc 144/477 ms, PRT axes 72, -58, 62 Disposition Clinical Impression: Transaminitis, Hyperbilirubinemia, Right upper quadrant pain Disposition: OTHER INSTITUTION NOT DEFINED Condition: Stable Is patient prescribed a controlled substance at d/c from ED?: No Referrals: Ana Maria Caraballo DO [Primary Care Provider] - 1-2 days Time of Disposition: 18:43 - Out of Hospital Transfer - Req. Specs Out of Hospital Transfer - Requested Specifics: Other Emergency Center ([facility])
[2021-11-04] MEDS ORDERED: ONDANSETRON 4 MG/2 ML VIAL IVP STA (16:26)
[2021-11-04 16:59] LABS: Basophils % (A) 0 %; Eosinophils % (A) 0 %; HCT 52.4 % (34.0-46.0); Lymphocytes # (A) 0.5 k/uL (1.0-4.8); Lymphocytes % (A) 3 %; MCH 26.7 pg (25.0-35.0); MCHC 30.5 g/dL (31.0-37.0); MCV 87.4 fL (80.0-100.0); Monocytes # (A) 0.3 k/uL (0-1.0); Monocytes % (A) 2 %; Neutrophils % (A) 94 %; Platelet Count 267 k/uL (150-450); RBC 5.99 m/uL (3.80-5.40); RDW 13.6 % (11.5-15.5); WBC 13.8 k/uL (3.8-10.6)
[2021-11-04 17:00] LABS: Appearance,Urine Cloudy (Clear); Bacteria,Urine Rare /hpf; Bilirubin,Urine Negative (Negative); Blood,Urine Negative (Negative); Color,Urine Yellow; Glucose,Urine (UA) Negative (Negative); Ketones,Urine 1+ (Negative); Leukocyte Esterase,Urine Small (Negative); Mucus,Urine Occasional /hpf; Nitrite,Urine Negative (Negative); Protein,Urine Trace (Negative); RBC,Urine 3 /hpf (0-5); Specific Gravity,Urine 1.028 (1.001-1.035); Squamous Epithelial Cell,Urine 42 /hpf (0-4); WBC,Urine 2 /hpf (0-5)
--- NOTE | 2021-11-04 17:07 | CT ---
EXAMINATION TYPE: CT abdomen pelvis wo con DATE OF EXAM: 11/04/2021 COMPARISON: 02/28/2021 HISTORY: Epigastric pain with nausea CT DLP: 1544.4 mGycm Automated exposure control for dose reduction was used. There is some patchy atelectasis at the lung bases. Heart is borderline enlarged. No pericardial effu kamryn. No pleural effusion. Liver is intact. Spleen is intact. The bile ducts are not dilated. Pancreas appears normal. The stoma ch is intact. There are numerous large calcified gallstones. No gallbladder wall thickening seen. There is 1.7 cm low-density left adrenal mass without change. Kidneys have normal size and contour. N o hydronephrosis. Ureters are not dilated. There is no retroperitoneal adenopathy. Appendix is demand manager ior and appears normal. Small bowel pattern is normal. The bladder distends smoothly. No inguinal hernia. No free fluid in the pelvis. No pelvic mass. There are numerous sigmoid diverticula. No diverticulitis. There is no mesenteric edema. No ascites o r free air. No sign of a bowel obstruction. The lumbar vertebrae have normal alignment. There is hype rtrophic anterior spur formation. There is 10% compression deformity of L2 vertebra that appears old. Bony pelvis is intact. The hip joints are intact. IMPRESSION: There are multiple sigmoid diverticula without diverticulitis. There are scattered diverticula throug hout the large bowel. Normal appendix. No acute abnormality of the abdomen and pelvis. Cholelithiasis. There is increased atelectasis at the lung bases compared to old exams There is improvement in the co nstipation compared to old exam.
[2021-11-04 17:09] LABS: ALT 300 U/L (4-34); AST 495 U/L (14-36); African American GFR (CKD) >90 (>60 ml/min/1.73 sqM); Albumin 4.5 g/dL (3.5-5.0); Alkaline Phosphatase 153 U/L (38-126); Amylase 73 U/L (30-110); Anion Gap 15 mmol/L; Blood Urea Nitrogen 16 mg/dL (7-17); Calcium 10.1 mg/dL (8.4-10.2); Carbon Dioxide 24 mmol/L (22-30); Chloride 100 mmol/L (98-107); Glucose 157 mg/dL (74-99); Lipase 189 U/L (23-300); Non-African American GFR(CKD) 80 (>60 ml/min/1.73 sqM); Potassium 4.5 mmol/L (3.5-5.1); Sodium 139 mmol/L (137-145); Total Protein 7.5 g/dL (6.3-8.2)
[2021-11-04] MEDS ORDERED: PROCHLORPERAZINE INJ 10 MG/2 ML VIAL IVP STA (17:19)
[2021-11-04] MEDS ORDERED: MORPHINE SULFATE 2 MG/ML SYRINGE IVP STA (17:19)
[2021-11-04] MEDS: HYOSCYAMINE SULFATE 0.125 MG TAB PO PRN (17:50)
[2021-11-04 20:45] VITALS: BP 130/77; PULSE 80; RESP 20; TEMP 97.8
== END 2021-11-04 20:45 | disposition other institution (70) ==
LOC: EC 14:30
DX: E80.6 Other disorders of bilirubin metabolism (principal); R74.01 Elevation of levels of liver transaminase levels; J44.9 Chronic obstructive pulmonary disease, unspecified; Z88.6 Allergy status to analgesic agent; Z91.030 Bee allergy status; Z91.041 Radiographic dye allergy status
CPT/HCPCS: 36415; 93005; 80053; 82150; 83690; 84484; 85025; 81001; 87502; 87635; 74176; 99284; 96365; 96375; J0780; J0690; J2405; J2270

== ENCOUNTER 2023-06-14 15:27 | Inpatient (IN) | payer MEDICARE ==
--- NOTE | 2023-06-14 16:30 | XR ---
EXAMINATION TYPE: XR chest 2V DATE OF EXAM: 06/14/2023 4:10 PM CLINICAL INDICATION:Female, 73 years old with history of Chest pain; [facility] COMPARISON: None TECHNIQUE: XR chest 2V Frontal and lateral views of the chest. FINDINGS: Lungs/Pleura: Subsegmental atelectasis is present in the lung bases. The left costophrenic sulcus is obscured. No evidence of pneumothorax Pulmonary vascularity: Unremarkable. Heart/mediastinum: Cardiomediastinal silhouette is unremarkable. Musculoskeletal: No acute osseous pathology. Cervical fusion hardware identified. IMPRESSION: Trace left pleural effusion.
[2023-06-14 16:56] LABS: Basophils % (A) 0 %; Eosinophils # (A) 0.1 k/uL (0-0.7); Eosinophils % (A) 1 %; HCT 51.3 % (34.0-46.0); Lymphocytes # (A) 1.5 k/uL (1.0-4.8); Lymphocytes % (A) 11 %; MCH 27.7 pg (25.0-35.0); MCHC 31.2 g/dL (31.0-37.0); MCV 88.6 fL (80.0-100.0); Mean Platelet Volume 8.6; Monocytes # (A) 1.1 k/uL (0-1.0); Monocytes % (A) 8 %; Neutrophils # (A) 11.4 k/uL (1.3-7.7); Neutrophils % (A) 79 %; Platelet Count 326 k/uL (150-450); RBC 5.79 m/uL (3.80-5.40); RDW 14.3 % (11.5-15.5); WBC 14.4 k/uL (3.8-10.6)
[2023-06-14 17:16] LABS: INR 0.8 (<1.2); Prothrombin Time 9.5 sec (10.0-12.5)
[2023-06-14 17:18] LABS: Partial Thromboplastin Time 20.6 sec (22.0-30.0)
[2023-06-14 17:21] LABS: ALT 57 U/L (4-34); AST 32 U/L (14-36); African American GFR (CKD) 79 (>60 ml/min/1.73 sqM); Albumin 4.1 g/dL (3.5-5.0); Alkaline Phosphatase 89 U/L (38-126); Anion Gap 8 mmol/L; Blood Urea Nitrogen 25 mg/dL (7-17); Calcium 10.5 mg/dL (8.4-10.2); Carbon Dioxide 30 mmol/L (22-30); Chloride 104 mmol/L (98-107); Glucose 92 mg/dL (74-99); Magnesium 2.1 mg/dL (1.6-2.3); Non-African American GFR(CKD) 68 (>60 ml/min/1.73 sqM); Potassium 4.2 mmol/L (3.5-5.1); Sodium 142 mmol/L (137-145); Total Bilirubin 1.4 mg/dL (0.2-1.3); Total Protein 7.2 g/dL (6.3-8.2)
[2023-06-14 17:29] LABS: NT-Pro-B-Type Natriuretic Pept 3560 pg/mL
--- NOTE | 2023-06-14 18:04 | ED ---
Chest Pain HPI - General Chief Complaint: Chest Pain Stated Complaint: chest discomfort/SOB Time Seen by Provider: 06/14/23 16:13 Source: patient, RN notes reviewed, old records reviewed Mode of arrival: ambulatory Limitations: no limitations - History of Present Illness Initial Comments: This is a 73-year-old female to the ER for shortness of breath and chest pain, significant exertional dyspnea leg swelling cough and congestion. Patient has underlying COPD history with no history of heart disease coming in for lower extremity edema recently diuresis with no help. Patient has no chest pain no fevers no travel history no sick contacts persistent worsening symptoms for a few days now MD Complaint: chest pain, other (Shortness of breath and exertional dyspnea) -: days(s) Onset: during exertion Pain Location: substernal, left chest, right chest Severity: moderate Severity scale (1-10): 6 Quality: heaviness Consistency: constant Improves With: nothing Worsens With: exertion, movement Anginal Symptoms: sense of impending doom Treatments Prior to Arrival: none - Related Data Home Medications Medication Instructions Recorded Confirmed QUEtiapine [SEROquel] 50 mg PO HS 02/28/06/14/23 Albuterol Sulfate [Albuterol 2 puff INHALATION RT-QID PRN 06/14/23 06/14/23 Sulfate Hfa] Fluticasone Propion/Salmeterol 1 puff INHALATION RT-BID 06/14/23 06/14/23 [Fluticasone-Salmeterol 100-50] Melatonin 10 mg PO HS 06/14/23 06/14/23 predniSONE [Deltasone] 20 mg PO BID 06/14/23 06/14/23 Previous Rx's Medication Instructions Recorded Benzonatate [Tessalon Perles] 100 mg PO TID PRN #10 cap 06/18/23 Furosemide [Lasix] 20 mg PO BID@0900,1600 #60 tab 06/18/23 Losartan [Cozaar] 50 mg PO DAILY #30 tab 06/18/23 Allergies Allergy/AdvReac Type Severity Reaction Status Date / Time azithromycin Allergy Rash/Hives Verified 06/14/23 17:18 bee venom protein (honey bee) Allergy Anaphylaxis Verified 06/14/23 17:18 codeine Allergy Rash/Hives Verified 06/14/23 17:18 Iodinated Contrast Media Allergy Anaphylaxis Verified 06/14/23 17:18 [Iodinated Contrast Media - Oral and] Review of Systems ROS Statement: Those systems with pertinent positive or pertinent negative responses have been documented in the HPI. ROS Other: All systems not noted in ROS Statement are negative. EKG Findings - EKG Comments: EKG Findings:: EKG is sinus 72 NM 204 QRS 135 QTc 433 Past Medical History Past Medical History: Asthma, COPD Additional Past Medical History / Comment(s): emphysema History of Any Multi-Drug Resistant Organisms: None Reported Past Surgical History: Back Surgery, Hysterectomy Additional Past Surgical History / Comment(s): rhinoplasty, Past Psychological History: No Psychological Hx Reported Smoking Status: Never smoker Past Alcohol Use History: None Reported Past Drug Use History: None Reported General Exam Limitations: no limitations General appearance: anxious Head exam: Present: atraumatic, normocephalic, normal inspection Eye exam: Present: normal appearance, PERRL, EOMI. Absent: scleral icterus, conjunctival injection, periorbital swelling ENT exam: Present: normal exam, mucous membranes moist Neck exam: Present: normal inspection. Absent: tenderness, meningismus, lymphadenopathy Respiratory exam: Present: respiratory distress, wheezes, accessory muscle use, decreased breath sounds, prolonged expiratory. Absent: rales, rhonchi, stridor Cardiovascular Exam: Present: bradycardia (With PVCs), normal heart sounds. Absent: systolic murmur, diastolic murmur, rubs, gallop, clicks GI/Abdominal exam: Present: soft, normal bowel sounds. Absent: distended, tenderness, guarding, rebound, rigid Extremities exam: Present: normal inspection, full ROM, normal capillary refill. Absent: tenderness, pedal edema, joint swelling, calf tenderness Back exam: Present: normal inspection Neurological exam: Present: alert, oriented X3, CN II-XII intact Psychiatric exam: Present: normal affect, normal mood Skin exam: Present: warm, dry, intact, normal color. Absent: rash Course Vital Signs 06/14/23 06/14/23 06/14/23 15:34 15:59 17:39 Temperature 97.5 F L Pulse Rate 38 L 68 46 L Pulse Rate [ Right Pulse Oximetery] Respiratory 18 18 Rate Blood Pressure 174/61 152/116 Blood Pressure [Right Arm Sitting] O2 Sat by Pulse 97 97 Oximetry 06/14/23 06/14/23 06/14/23 18:00 19:20 19:40 Temperature Pulse Rate 47 L 65 75 Pulse Rate [ Right Pulse Oximetery] Respiratory 18 16 22 Rate Blood Pressure 152/116 197/117 199/73 Blood Pressure [Right Arm Sitting] O2 Sat by Pulse 97 95 95 Oximetry 06/14/23 06/14/23 06/14/23 19:49 20:10 20:37 Temperature Pulse Rate 68 72 83 Pulse Rate [ Right Pulse Oximetery] Respiratory 22 Rate Blood Pressure 124/80 Blood Pressure [Right Arm Sitting] O2 Sat by Pulse 95 Oximetry 06/14/23 06/14/23 06/15/23 22:00 23:00 01:18 Temperature Pulse Rate 74 76 55 L Pulse Rate [ Right Pulse Oximetery] Respiratory 24 19 16 Rate Blood Pressure 141/56 120/109 166/77 Blood Pressure [Right Arm Sitting] O2 Sat by Pulse 94 L 92 L 95 Oximetry 06/15/23 06/15/23 06/15/23 02:09 02:27 02:37 Temperature Pulse Rate 71 64 66 Pulse Rate [ Right Pulse Oximetery] Respiratory 29 H Rate Blood Pressure 189/70 Blood Pressure [Right Arm Sitting] O2 Sat by Pulse 96 Oximetry 06/15/23 06/15/23 06/15/23 06:48 08:22 11:22 Temperature 97.7 F Pulse Rate 79 90 Pulse Rate [ Right Pulse Oximetery] Respiratory 16 18 Rate Blood Pressure 173/60 Blood Pressure [Right Arm Sitting] O2 Sat by Pulse 94 L 95 Oximetry 06/15/23 06/15/23 06/15/23 11:32 12:00 14:00 Temperature Pulse Rate 94 93 87 Pulse Rate [ Right Pulse Oximetery] Respiratory 18 18 20 Rate Blood Pressure 173/60 144/88 Blood Pressure [Right Arm Sitting] O2 Sat by Pulse 99 93 L Oximetry 06/15/23 06/15/23 06/15/23 14:43 14:53 16:30 Temperature 97.7 F Pulse Rate 90 95 Pulse Rate [ 51 L Right Pulse Oximetery] Respiratory 18 18 18 Rate Blood Pressure Blood Pressure 205/84 [Right Arm Sitting] O2 Sat by Pulse 94 L Oximetry - Reevaluation(s) Reevaluation #1: 06/14/23 18:32 Medical records reviewed Reevaluation #2: 06/14/23 18:32 Patient's symptoms unchanged Reevaluation #3: 06/14/23 18:32 Patient informed of results questions answered Reevaluation #4: Was pt. sent in by a medical professional or institution (RICHARD Clark, EDI DEVELOPER, urgent care, hospital, or snf...) When possible be specific @ -no Did you speak to anyone other than the patient for history (EMS, parent, family, police, friend...)? What history was obtained from this source @ -no Did you review nursing and triage notes (agree or disagree)? Why? @ -agree Are old charts reviewed (outside hosp., previous admission, EMS record, old EKG, old radiological studies, urgent care reports/EKG's, snf records)? Report findings @ -yes Differential Diagnosis (chest pain, altered mental status, abdominal pain women, abdominal pain men, vaginal bleeding, weakness, fever, dyspnea, syncope, headache, dizziness, GI bleed, back pain, seizure, CVA, palpatations, mental health, musculoskeletal)? @ -prior EKG interpreted by me (3pts min.). @ -yes X-rays interpreted by me (1pt min.). @ -yes negative for acute disease CT interpreted by me (1pt min.). @ -no U/S interpreted by me (1pt. min.). @ -no What testing was considered but not performed or refused? (CT, X-rays, U/S, labs)? Why? @ -none What meds were considered but not given or refused? Why? @ -none Did you discuss the management of the patient with other professionals (professionals i.e. RICHARD Clark, EDI DEVELOPER, lab, RT, psych nurse, social science manager, assessment services manager, teacher, port patrol officer, case managers)? Give summary @ -no Was smoking cessation discussed for >3mins.? @ -no Was critical care preformed (if so, how long)? @ -yes31 Were there social determinants of health that impacted care today? How? (Homelessness, low income, unemployed, alcoholism, drug addiction, transportation, low edu. Level, literacy, decrease access to med. care, retirement, rehab)? @ -none Was there de-escalation of care discussed even if they declined (Discuss DNR or withdrawal of care, Hospice)? DNR status @ -no What co-morbidities impacted this encounter? (DM, HTN, Smoking, COPD, CAD, Cancer, CVA, ARF, Chemo, Hep., AIDS, mental health diagnosis, sleep apnea, morbid obesity)? @ -none Was patient admitted / discharged? Hospital course, mention meds given and route, prescriptions, significant lab abnormalities, going to OR and other pertinent info. @ - 73 female to the ER for evaluation patient presents today for evaluation of shortness of breath and chest pain. COPD and CHF. Patient admitted for diuresis and breathing treatments as needed Admitted Undiagnosed new problem with uncertain prognosis? @ -no Drug Therapy requiring intensive monitoring for toxicity (Heparin, Nitro, Insulin, Cardizem)? @ -no Were any procedures done? @ -no Diagnosis/symptom? @ -Arrhythmia CHF chest pain Acute, or Chronic, or Acute on Chronic? @ -Acute Uncomplicated (without systemic symptoms) or Complicated (systemic symptoms)? @ -Complicated Side effects of treatment? @ -no Exacerbation, Progression, or Severe Exacerbation? @ -exacerbation Poses a threat to life or bodily function? How? (Chest pain, [place], DC, pneumonia, PE, COPD, DKA, ARF, appy, cholecystitis, CVA, Diverticulitis, Homicidal, Suicidal, threat to staff... and all critical care pts) @ -yes with significant cardiac arrhythmia extreme of age Reevaluation #5: Differential Dyspnea: Coronary syndrome, arrhythmia, tamponade, asthma, COPD, pulmonary embolism, pneumonia, pneumothorax, pulmonary effusion, anaphylaxis, diabetic ketoacidosis, flailed chest, pulmonary contusion, diaphragmatic rupture, anemia, neuromuscular, this is not meant to be an all-inclusive list. Differential Chest Pain: Stable Angina, Unstable Angina, STEMI, NSTEMI Aortic Dissection, Pneumothorax, Musculoskeletal, Esophageal Spasm GERD, Cholecystitis, Pancreatitis, Zoster, this is not meant to be an all-inclusive list. - Consultations Consultation #1: Spoke with [facility] who agrees to admit this patient Chest Pain MDM - MDM 73 female to the ER for evaluation patient presents today for evaluation of shortness of breath and chest pain. COPD and CHF. Patient admitted for diuresis and breathing treatments as needed Critical Care Time Critical Care Time: Yes Total Critical Care Time: 31 Disposition Clinical Impression: Atypical chest pain, Chest pain, CHF (congestive heart failure), Bradycardia, PVC (premature ventricular contraction), COPD (chronic obstructive pulmonary disease) Disposition: ADMITTED IP TO THIS HOSP Condition: Stable Is patient prescribed a controlled substance at d/c from ED?: No Time of Disposition: 18:30
[2023-06-14] MEDS ORDERED: NALOXONE 0.4 MG/ML 1 ML VIAL IVP PRN (18:28)
[2023-06-14] MEDS: ALBUTEROL NEBULIZED 2.5 MG/3 ML INHALATION SCH (19:44)
[2023-06-14] MEDS: IPRATROPIUM-ALBUTEROL 3 ML NEB INHALATION STA (19:49)
[2023-06-14] MEDS: MELATONIN 5 MG TABLET PO SCH (20:36)
[2023-06-14] MEDS: QUEtiapine 50 MG TAB PO SCH (20:37)
[2023-06-14] MEDS: hydrALAZINE HCL 20 MG/ML 1 ML VIAL IVP STA (20:39)
[2023-06-14] MEDS: hydrOXYzine HCL 25 MG TAB PO STA (21:13)
[2023-06-14] MEDS: SENNOSIDES 8.6 MG TAB PO PRN (21:14)
[2023-06-14] MEDS: FUROSEMIDE 40 MG TAB PO SCH (23:13)
[2023-06-15] MEDS: KETOROLAC 15 MG/ML 1 ML VIAL IVP PRN (00:19)
[2023-06-15] MEDS: KETOROLAC 15 MG/ML 1 ML VIAL IVP SCH (00:19)
[2023-06-15] MEDS: ALBUTEROL NEBULIZED 2.5 MG/3 ML INHALATION PRN (02:26)
--- NOTE | 2023-06-15 09:14 | CA ---
Transthoracic Echo Report Name: Misti Almaraz Age: 73 Gender: F : 1950 Exam Date: 06/15/2023 07:39 Exam Location: [facility] Ht (in): 68 Wt (lb): 199 Ordering Physician: Jagdish Mckinnon DO Attending/Referring Phys: [id number], Pratibha Rnfa Marie Avila RDCS Procedure CPT: Indications: Heart failure Cardiac Hx: Technical Quality: Good Contrast 1: Total Dose (mL): Contrast 2: Total Dose (mL): MEASUREMENTS (Male / Female) Normal Values 2D ECHO LV Diastolic Diameter PLAX 5.4 cm 4.2 - 5.9 / 3.9 - 5.3 cm LV Systolic Diameter PLAX 3.8 cm IVS Diastolic Thickness 1.1 cm 0.6 - 1.0 / 0.6 - 0.9 cm LVPW Diastolic Thickness 1.0 cm 0.6 - 1.0 / 0.6 - 0.9 cm LV Relative Wall Thickness 0.4 RV Internal Dim ED PLAX 3.6 cm LA Systolic Diameter LX 3.4 cm 3.0 - 4.0 / 2.7 - 3.8 cm LV Diastolic Volume MOD 4C 160.0 cm??? LV Systolic Volume MOD 4C 104.1 cm??? LV Ejection Fraction MOD 4C 34.9 % LV Cardiac Index MOD 4C 1697.6 cm???/min???m??? LV Diastolic Length 4C 8.4 cm LV Systolic Length 4C 7.4 cm LV Diastolic Volume MOD 2C 107.4 cm??? LV Systolic Volume MOD 2C 59.8 cm??? LV Ejection Fraction MOD 2C 44.3 % LV Cardiac Index MOD 2C 1445.8 cm???/min???m??? LV Diastolic Length 2C 7.5 cm LV Systolic Length 2C 6.6 cm LA Volume 70.4 cm??? 18 - 58 / 22 - 52 cm??? LA Volume Index 33.4 cm???/m??? 16 - 28 cm???/m??? M-MODE Aortic Root Diameter MM 3.4 cm DOPPLER AV Peak Velocity 160.1 cm/s AV Peak Gradient 10.3 mmHg MV Area PHT 3.4 cm??? Mitral E Point Velocity 89.0 cm/s Mitral A Point Velocity 88.0 cm/s Mitral E to A Ratio 1.0 MV Deceleration Time 226.3 ms TR Peak Velocity 320.1 cm/s TR Peak Gradient 41.0 mmHg Right Ventricular Systolic Press 46.0 mmHg FINDINGS Left Ventricle Left ventricular ejection fraction is estimated at 45-50 %. Mildly increased wall thickness.Mild left ventricular dilatation. Mildly reduced global left ventricular systolic function. LVEF appears lower than normal due to irregular cardiac rhythm Right Ventricle Mild right ventricular dilatation. Moderate pulmonary hypertension. Right ventricular systolic pressure estimated at 46 mm hg. Right Atrium Mild right atrial dilatation. Left Atrium Mildly increased left atrial volume. Mildly increased left atrial area. Mitral Valve Structurally normal mitral valve. Mild mitral regurgitation. Diastolic Mitral regurgitation Aortic Valve Trileaflet aortic valve. No aortic valve stenosis or regurgitation. Tricuspid Valve Structurally normal tricuspid valve. Mild tricuspid regurgitation. Pulmonic Valve Structurally normal pulmonic valve. No pulmonic regurgitation. Pericardium No pericardial effusion. Aorta Normal size aortic root and proximal ascending aorta. CONCLUSIONS LVEF is estimated at 45-50 %. LVEF appears lower than normal due to irregular cardiac rhythm. Mildly increased wall thickness. Mild left ventricular dilatation. NO wall motion abnormality Diastolic MR, mild MR Mild RV dilatation, RVSP estimated 46 mmHg Previewed by: Dr Clyde Avila (Electronically Signed) Final Date: 15 June 2023 09:13
[2023-06-15] MEDS: PANTOPRAZOLE 40 MG/10 ML VIAL IVP SCH (09:19)
--- NOTE | 2023-06-15 10:47 | P.HPIM ---
History of Present Illness H&P Date: 06/15/23 History of present illness; patient 73-year-old lady with past medical history significant for COPD who presented to the ER for exertional dyspnea and lower extremity swelling. Patient stated that she has been noticing that she is getting short of breath on exertion for the last few weeks. Patient also been noticing that her lower extremities are swollen. Patient also complaining of orthopnea, uses 3 pillows to sleep. Denies any PND. Patient also complaining of chest pressure, central, nonradiating, no aggravating or relieving associated with this chest pressure. Patient also complaining of chest congestion and cough. There is no complaint of fever or chills. There is no complaint of any sick contacts in the family. Because of symptoms, patient came to the ER. Initial lab work done in the ER showed WBC 14.4, hemoglobin 16, platelet count 326, sodium 142, potassium 4.2, BUN 25, creatinine 0.86, glucose 92, calcium 10.5, bilirubin 1.4, AST 32, ALT 57, troponin 0.017 proBNP 3560 EKG done in the ER showed heart rate of 72, TN 204, QRS 135, no ST segment elevation or depression seen, no T-wave inversions seen. Chest x-ray done in the ER showed trace left pleural effusion Patient admitted to internal medicine service REVIEW OF SYSTEMS: CONSTITUTIONAL: No fever, no malaise, no fatigue. HEENT: No recent visual problems or hearing problems. Denied any sore throat. CARDIOVASCULAR: As mentioned above PULMONARY: As mentioned above GASTROINTESTINAL: No diarrhea, no nausea, no vomiting, no abdominal pain. NEUROLOGICAL: No headaches, no weakness, no numbness. HEMATOLOGICAL: Denies any bleeding or petechiae. GENITOURINARY: Denies any burning micturition, frequency, or urgency. MUSCULOSKELETAL/RHEUMATOLOGICAL: Denies any joint pain, swelling, or any muscle pain. ENDOCRINE: Denies any polyuria or polydipsia. The rest of the 14-point review of systems is negative. PHYSICAL EXAMINATION: GENERAL: The patient is alert and oriented x3, not in any acute distress. Well developed, well nourished. HEENT: Pupils are round and equally reacting to light. EOMI. No scleral icterus. No conjunctival pallor. Normocephalic, atraumatic. No pharyngeal erythema. No thyromegaly. CARDIOVASCULAR: S1 and S2 present. No murmurs, rubs, or gallops. PULMONARY: Coarse breath sounds bilaterally, no wheezing, bilateral crackles audible ABDOMEN: Soft, nontender, nondistended, normoactive bowel sounds. No palpable organomegaly. MUSCULOSKELETAL: No joint swelling or deformity. EXTREMITIES: 1+ pitting edema of lower extremities bilaterally NEUROLOGICAL: Gross neurological examination did not reveal any focal deficits. SKIN: No rashes. Assessment and plan Exertional dyspnea Acute CHF Acute COPD exacerbation Monitor vital signs Monitor CBC Monitor CMP Continue telemetry monitoring Trend troponins. Strict I's and O's, daily weights Continue IV Lasix 40 mg every 8 Ordered 2D echo Continue breathing treatment Check influenza A, influenza B, RSV and COVID-19 infection Resume home meds Consult pulmonology Consult cardiology Labs and medication were reviewed.. Continue same treatment. Continue with symptomatic treatment. Resume home medication. Monitor labs and vitals. DVT and GI prophylaxis. Further recommendations as per clinical course of the patient Dictation was produced using [employer] dictation software. please excuse any grammatical, word or spelling errors. Past Medical History Past Medical History: Asthma, COPD Additional Past Medical History / Comment(s): emphysema History of Any Multi-Drug Resistant Organisms: None Reported Past Surgical History: Back Surgery, Hysterectomy Additional Past Surgical History / Comment(s): rhinoplasty, Past Psychological History: No Psychological Hx Reported Smoking Status: Never smoker Past Alcohol Use History: None Reported Past Drug Use History: None Reported Medications and Allergies Home Medications Medication Instructions Recorded Confirmed Type QUEtiapine [SEROquel] 50 mg PO HS 02/28/21 06/14/23 History Albuterol Sulfate [Albuterol 2 puff INHALATION RT-QID PRN 06/14/23 06/14/23 History Sulfate Hfa] Fluticasone Propion/Salmeterol 1 puff INHALATION RT-BID 06/14/23 06/14/23 History [Fluticasone-Salmeterol 100-50] Furosemide [Lasix] 20 mg PO DAILY 06/14/23 06/14/23 History Melatonin 10 mg PO HS 06/14/23 06/14/23 History predniSONE [Deltasone] 20 mg PO BID 06/14/23 06/14/23 History Allergies Allergy/AdvReac Type Severity Reaction Status Date / Time azithromycin Allergy Rash/Hives Verified 06/14/23 17:18 bee venom protein (honey bee) Allergy Anaphylaxis Verified 06/14/23 17:18 codeine Allergy Rash/Hives Verified 06/14/23 17:18 Iodinated Contrast Media Allergy Anaphylaxis Verified 06/14/23 17:18 [Iodinated Contrast Media - Oral and] Physical Exam Vitals: Vital Signs Temp Pulse Resp BP Pulse Ox 06/15/23 08:22 95 06/15/23 06:48 97.7 F 79 16 173/60 94 L 06/15/23 02:37 66 06/15/23 02:27 64 06/15/23 02:09 71 29 H 189/70 96 06/15/23 01:18 55 L 16 166/77 95 06/14/23 23:00 76 19 120/109 92 L 06/14/23 22:00 74 24 141/56 94 L 06/14/23 20:37 83 22 124/80 95 06/14/23 20:10 72 06/14/23 19:49 68 06/14/23 19:40 75 22 199/73 95 06/14/23 19:20 65 16 197/117 95 06/14/23 18:00 47 L 18 152/116 97 06/14/23 17:39 46 L 18 152/116 97 06/14/23 15:59 68 06/14/23 15:34 97.5 F L 38 L 18 174/61 97 Intake and Output 06/14/23 06/15/23 06/15/23 22:59 06:59 14:59 Other: Weight 90.265 kg Results CBC & Chem 7: 06/14/23 16:12 06/14/23 16:12 Labs: Abnormal Lab Results - Last 24 Hours (Table) 06/14/23 06/14/23 06/14/23 Range/Units 16:12 16:12 16:12 WBC 14.4 H (3.8-10.6) k/uL RBC 5.79 H (3.80-5.40) m/uL Hct 51.3 H (34.0-46.0) % Neutrophils # 11.4 H (1.3-7.7) k/uL Monocytes # 1.1 H (0-1.0) k/uL PT 9.5 L (10.0-12.5) sec APTT 20.6 L (22.0-30.0) sec BUN 25 H (7-17) mg/dL Calcium 10.5 H (8.4-10.2) mg/dL Total Bilirubin 1.4 H (0.2-1.3) mg/dL ALT 57 H (4-34) U/L
--- NOTE | 2023-06-15 11:54 | P.CRDCN ---
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 She has a past medical history of COPD from secondhand smoke. Patient presented to the emergency center due to lower extremity edema and dyspnea on exertion. Patient also states that she had a fall in the living room a couple days ago when she tripped. She denies any loss of consciousness. Her symptoms of dyspnea on exertion and edema have been going on for the last couple of days. She denies any lightheadedness or dizziness. No cough or sputum production. Patient states that she sometimes feels that her heart is racing which started last week. At the time of evaluation, she states she feels that it is fast but is really running in the 70s. She thinks it may be related to anxiety. Patient's main concern at this point is constipation. She states she had a bowel movement yesterday and we will have nursing contact a ttending. Patient states that she has been a lifelong non-smoker but was exposed to secondhand smoke. Patient is seen today in the emergency center waiting for a bed on the cardiac stepdown unit. Heart rate has been down to 38 at the lowest, initial blood pressure 152/116. Patient is status post IV Lasix and has been continued on 40 mg every 8 hours. She states lower extremity edema is improved. EKG second-degree heart block, intermittent Chest x-ray: Trace left pleural effusion Echocardiogram reveals EF of 45 to 50%. LVEF appears lower than normal due to irregular heart rhythm. Today mild left ventricular dilatation. No wall motion abnormality. Diastolic MR, mild MR. Mild RV dilatation RVSP 46 mmHg. WBC 14.4, hemoglobin 16, platelet count 326. INR 0.9. Electrolytes are normal, BUN 25 creatinine 0.86. Calcium 10.5. Magnesium 2.1. Total bilirubin 1.4, ALT 57. AST and alkaline phosphatase normal range. Troponin negative x 3. proBNP 3560. Home cardiac medications: Lasix 20 mg daily Review Of Systems: At the time of my exam: CONSTITUTIONAL: Denies fever or chills. HEENT: Denies blurred vision, vision changes, or eye pain. Denies hemoptysis CARDIOVASCULAR: Denies chest pain. Denies orthopnea. Denies PND. Denies palpitations. Denies syncopal episodes. Reports sensation of heart is racing. RESPIRATORY: Denies shortness of breath. Reports dyspnea on exertion. GASTROINTESTINAL: Denies abdominal pain. Denies nausea or vomiting. HEMATOLOGIC: Denies bleeding disorders. GENITOURINARY: Denies any blood in urine. SKIN: Denies pruitis. Denies rash. Physical examination: Gen: This is a 73-year-old female in no acute distress VS: reviewed HEENT: Head is atraumatic, normocephalic. Pupils equal, round. Sclerae is anicteric. NECK: Supple. No JVD. LUNGS: Clear to auscultation. No wheezes or rhonchi. No intercostal retractions. HEART: Irregular rate and rhythm. ABDOMEN: Soft No tenderness. EXTREMITIES: 1+ pedal edema. No calf tenderness. NEUROLOGICAL: Patient is awake, alert and oriented x3. Assessment: Secondary heart block running in the 60s, intermittent No syncopal episode Accelerated hypertension Plan: Continue Lasix but decrease dose to 20 mg every 8 hours Start patient on losartan 50 mg daily Continue telemetry monitoring Patient may require pacemaker but plan to monitor the patient for another 24 hours Further recommendations to follow based upon clinical course Thank you kindly for this consultation. Nurse practitioner note has been reviewed, I agree with documented findings and plan of care. Patient was seen and examined. Past Medical History Past Medical History: Asthma, COPD Additional Past Medical History / Comment(s): emphysema History of Any Multi-Drug Resistant Organisms: None Reported Past Surgical History: Back Surgery, Hysterectomy Additional Past Surgical History / Comment(s): rhinoplasty, Past Psychological History: No Psychological Hx Reported Smoking Status: Never smoker Past Alcohol Use History: None Reported Past Drug Use History: None Reported Medications and Allergies Home Medications Medication Instructions Recorded Confirmed Type QUEtiapine [SEROquel] 50 mg PO HS 02/28/21 06/14/23 History Albuterol Sulfate [Albuterol 2 puff INHALATION RT-QID PRN 06/14/23 06/14/23 History Sulfate Hfa] Fluticasone Propion/Salmeterol 1 puff INHALATION RT-BID 06/14/23 06/14/23 History [Fluticasone-Salmeterol 100-50] Furosemide [Lasix] 20 mg PO DAILY 06/14/23 06/14/23 History Melatonin 10 mg PO HS 06/14/23 06/14/23 History predniSONE [Deltasone] 20 mg PO BID 06/14/23 06/14/23 History Allergies Allergy/AdvReac Type Severity Reaction Status Date / Time azithromycin Allergy Rash/Hives Verified 06/14/23 17:18 bee venom protein (honey bee) Allergy Anaphylaxis Verified 06/14/23 17:18 codeine Allergy Rash/Hives Verified 06/14/23 17:18 Iodinated Contrast Media Allergy Anaphylaxis Verified 06/14/23 17:18 [Iodinated Contrast Media - Oral and] Physical Exam Vitals: Vital Signs Temp Pulse Resp BP Pulse Ox 06/15/23 08:22 95 06/15/23 06:48 97.7 F 79 16 173/60 94 L 06/15/23 02:37 66 06/15/23 02:27 64 06/15/23 02:09 71 29 H 189/70 96 06/15/23 01:18 55 L 16 166/77 95 06/14/23 23:00 76 19 120/109 92 L 06/14/23 22:00 74 24 141/56 94 L 06/14/23 20:37 83 22 124/80 95 06/14/23 20:10 72 06/14/23 19:49 68 06/14/23 19:40 75 22 199/73 95 06/14/23 19:20 65 16 197/117 95 06/14/23 18:00 47 L 18 152/116 97 06/14/23 17:39 46 L 18 152/116 97 06/14/23 15:59 68 06/14/23 15:34 97.5 F L 38 L 18 174/61 97 Intake and Output 06/14/23 06/15/23 06/15/23 22:59 06:59 14:59 Other: Weight 90.265 kg Results 06/14/23 16:12 06/14/23 16:12 Cardiac Enzymes 06/14/23 06/14/23 06/14/23 Range/Units 16:12 16:12 19:10 AST 32 (14-36) U/L Troponin I 0.017 0.018 (0.000-0.034) ng/mL 06/14/23 Range/Units 21:52 AST (14-36) U/L Troponin I 0.021 (0.000-0.034) ng/mL Coagulation 06/14/23 Range/Units 16:12 PT 9.5 L (10.0-12.5) sec APTT 20.6 L (22.0-30.0) sec CBC 06/14/23 Range/Units 16:12 WBC 14.4 H (3.8-10.6) k/uL RBC 5.79 H (3.80-5.40) m/uL Hgb 16.0 (11.4-16.0) gm/dL Hct 51.3 H (34.0-46.0) % Plt Count 326 (150-450) k/uL Comprehensive Metabolic Panel 06/14/23 Range/Units 16:12 Sodium 142 (137-145) mmol/L Potassium 4.2 (3.5-5.1) mmol/L Chloride 104 (98-107) mmol/L Carbon Dioxide 30 (22-30) mmol/L BUN 25 H (7-17) mg/dL Creatinine 0.86 (0.52-1.04) mg/dL Glucose 92 (74-99) mg/dL Calcium 10.5 H (8.4-10.2) mg/dL AST 32 (14-36) U/L ALT 57 H (4-34) U/L Alkaline Phosphatase 89 (38-126) U/L Total Protein 7.2 (6.3-8.2) g/dL Albumin 4.1 (3.5-5.0) g/dL Current Medications Generic Name Dose Route Start Last Admin Trade Name Freq PRN Reason Stop Dose Admin Albuterol Sulfate 2.5 mg 06/14/23 22:00 06/15/23 08:22 Albuterol Nebulized 2.5 Mg/3 Ml INHALATION Not Given QID PRATIBHA Albuterol Sulfate 2.5 mg 06/15/23 01:52 06/15/23 02:26 Albuterol Nebulized 2.5 Mg/3 Ml INHALATION 2.5 mg RT-QID PRN Administration Shortness Of Breath Or Wheezing Furosemide 40 mg 06/15/23 00:00 06/14/23 23:13 Furosemide 40 Mg Tab PO 40 mg Q8HR PRATIBHA Administration Ketorolac Tromethamine 15 mg 06/15/23 00:16 06/15/23 00:19 Ketorolac 15 Mg/Ml 1 Ml Vial IVP 06/20/23 00:12 15 mg Q6HR PRN Administration pain Melatonin 10 mg 06/14/23 21:00 06/14/23 20:36 Melatonin 5 Mg Tablet PO 10 mg HS PRATIBHA Administration Naloxone HCl 0.2 mg 06/14/23 18:28 Naloxone 0.4 Mg/Ml 1 Ml Vial IVP Q2M PRN Opioid Reversal Pantoprazole Sodium 40 mg 06/15/23 09:00 Pantoprazole 40 Mg/10 Ml Vial IVP DAILY PRATIBHA Quetiapine Fumarate 50 mg 06/14/23 21:00 06/14/23 20:37 Quetiapine 50 Mg Tab PO 50 mg HS PRATIBHA Administration Senna 8.6 mg 06/14/23 20:59 06/14/23 21:14 Sennosides 8.6 Mg Tab PO 8.6 mg DAILY PRN Administration Constipation Intake and Output 06/14/23 06/15/23 06/15/23 22:59 06:59 14:59 Other: Weight 90.265 kg 06/14/23 16:12 06/14/23 16:12
[2023-06-15] MEDS: LOSARTAN 50 MG TAB PO SCH (12:30)
[2023-06-15] MEDS: PSYLLIUM HUSK 100% 6 GM PACKET PO SCH (12:30)
[2023-06-15 13:16] LABS: ALT 60 U/L (4-34); AST 46 U/L (14-36); African American GFR (CKD) 72 (>60 ml/min/1.73 sqM); Albumin 3.7 g/dL (3.5-5.0); Alkaline Phosphatase 66 U/L (38-126); Anion Gap 8 mmol/L; Blood Urea Nitrogen 28 mg/dL (7-17); Calcium 9.2 mg/dL (8.4-10.2); Carbon Dioxide 27 mmol/L (22-30); Chloride 105 mmol/L (98-107); Glucose 110 mg/dL (74-99); Non-African American GFR(CKD) 62 (>60 ml/min/1.73 sqM); Sodium 140 mmol/L (137-145); Total Bilirubin 2.3 mg/dL (0.2-1.3); Total Protein 6.7 g/dL (6.3-8.2)
[2023-06-15 13:22] LABS: HCT 49.4 % (34.0-46.0); HGB 15.3 gm/dL (11.4-16.0); Hypochromasia Slight; MCH 27.6 pg (25.0-35.0); MCHC 30.9 g/dL (31.0-37.0); MCV 89.4 fL (80.0-100.0); Platelet Count 254 k/uL (150-450); RBC 5.53 m/uL (3.80-5.40); RDW 14.6 % (11.5-15.5); WBC 13.2 k/uL (3.8-10.6)
[2023-06-15 13:58] LABS: Potassium 4.9 mmol/L (3.5-5.1)
--- NOTE | 2023-06-15 16:13 | P.CNPUL ---
History of Present Illness Consult date: 06/15/23 Requesting physician: Eros Balderrama Reason for consult: dyspnea Chief complaint: Lower extremity edema History of present illness: This is a 73-year-old female patient with a history of mild intermittent chronic bronchial asthma, secondhand smoke exposure however is a lifelong non-smoker who presented to the emergency room with complaints of lower extremity edema and some shortness of breath. She had been treated with diuretics in the outpatient setting without much improvement. Chest x-ray shows subsegmental atelectasis in the bases and a trace left pleural effusion. White count 13.2. Hemoglobin 15.3. Platelets 254. Sodium 140. Potassium 4.9. Bicarb 27. BUN 28. Creatinine 0.93. Viral screen is negative. proBNP 3560. Troponin negative x 3. Echocardiogram reveals a impaired left ventricular systolic function with ejection fraction 45 to 50%. EKG is revealing a second-degree intermittent heart block. He is seen today in consultation in the emergency department. She is currently sitting up in a stretcher. Awake and alert in no acute distress. She states her main issue is lower extremity edema. She denies any shortness of breath currently. She is maintaining good O2 saturations in the 90s on room air. She has been afebrile. Review of Systems REVIEW OF SYSTEMS: CONSTITUTIONAL: Denies any recent significant weight loss or weight gain. EYES: Denies change in vision. EARS, NOSE, MOUTH, THROAT: Denies headaches, denies sore throat. CARDIOVASCULAR: Denies chest pain, palpitations or syncopal episodes. RESPIRATORY: Positive for mild shortness of breath, no cough, congestion or hemoptysis. GASTROINTESTINAL: Denies change in appetite, denies abdominal pain GENITOURINARY: Denies hematuria, denies infections. MUSKULOSKELETAL: Positive for lower extremity edema. INTEGUMENTARY: Denies rash, denies eczema. NEUROLOGICAL: Denies recent memory loss, no recent seizure activity. PSYCHIATRIC: Denies anxiety, denies depression. HEMATOLOGIC/LYMPHATIC: Denies anemia, denies enlarged lymph nodes. Past Medical History Past Medical History: Asthma, COPD Additional Past Medical History / Comment(s): emphysema History of Any Multi-Drug Resistant Organisms: None Reported Past Surgical History: Back Surgery, Hysterectomy Additional Past Surgical History / Comment(s): rhinoplasty, Past Psychological History: No Psychological Hx Reported Smoking Status: Never smoker Past Alcohol Use History: None Reported Past Drug Use History: None Reported Medications and Allergies Home Medications Medication Instructions Recorded Confirmed Type QUEtiapine [SEROquel] 50 mg PO HS 02/28/21 06/14/23 History Albuterol Sulfate [Albuterol 2 puff INHALATION RT-QID PRN 06/14/23 06/14/23 History Sulfate Hfa] Fluticasone Propion/Salmeterol 1 puff INHALATION RT-BID 06/14/23 06/14/23 History [Fluticasone-Salmeterol 100-50] Furosemide [Lasix] 20 mg PO DAILY 06/14/23 06/14/23 History Melatonin 10 mg PO HS 06/14/23 06/14/23 History predniSONE [Deltasone] 20 mg PO BID 06/14/23 06/14/23 History Allergies Allergy/AdvReac Type Severity Reaction Status Date / Time azithromycin Allergy Rash/Hives Verified 06/14/23 17:18 bee venom protein (honey bee) Allergy Anaphylaxis Verified 06/14/23 17:18 codeine Allergy Rash/Hives Verified 06/14/23 17:18 Iodinated Contrast Media Allergy Anaphylaxis Verified 06/14/23 17:18 [Iodinated Contrast Media - Oral and] Physical Exam Vitals: Vital Signs Temp Pulse Resp BP Pulse Ox 06/15/23 14:53 95 18 06/15/23 14:43 90 18 06/15/23 14:00 87 20 144/88 93 L 06/15/23 12:00 93 18 173/60 99 06/15/23 11:32 94 18 06/15/23 11:22 90 18 06/15/23 08:22 95 06/15/23 06:48 97.7 F 79 16 173/60 94 L 06/15/23 02:37 66 06/15/23 02:27 64 06/15/23 02:09 71 29 H 189/70 96 06/15/23 01:18 55 L 16 166/77 95 06/14/23 23:00 76 19 120/109 92 L 06/14/23 22:00 74 24 141/56 94 L 06/14/23 20:37 83 22 124/80 95 06/14/23 20:10 72 06/14/23 19:49 68 06/14/23 19:40 75 22 199/73 95 06/14/23 19:20 65 16 197/117 95 06/14/23 18:00 47 L 18 152/116 97 06/14/23 17:39 46 L 18 152/116 97 GENERAL EXAM: Alert, 73-year-old female, on room air, comfortable in no apparent distress. HEAD: Normocephalic. EYES: Normal reaction of pupils, equal size. NOSE: Clear with pink turbinates. THROAT: No erythema or exudates. NECK: No masses, no JVD. CHEST: No chest wall deformity. LUNGS: Equal air entry with crackles in the left base. CVS: S1 and S2 normal with no audible murmur, irregular rhythm. ABDOMEN: No hepatosplenomegaly, normal bowel sounds, no guarding or rigidity. SPINE: No scoliosis or deformity SKIN: No rashes CENTRAL NERVOUS SYSTEM: No focal deficits, tone is normal in all 4 extremities. EXTREMITIES: There is no peripheral edema. No clubbing, no cyanosis. Periph eral pulses are intact. Results - Laboratory Findings CBC and BMP: 06/15/23 12:23 06/15/23 12:23 PT/INR, D-dimer PT 9.5 sec (10.0-12.5) L 06/14/23 16:12 INR 0.8 (<1.2) 06/14/23 16:12 Abnormal lab findings: Abnormal Labs 06/14/23 06/14/23 06/14/23 16:12 16:12 16:12 WBC 14.4 H RBC 5.79 H Hct 51.3 H MCHC Neutrophils # 11.4 H Monocytes # 1.1 H PT 9.5 L APTT 20.6 L BUN 25 H Glucose Calcium 10.5 H Total Bilirubin 1.4 H AST ALT 57 H 06/15/23 06/15/23 12:23 12:23 WBC 13.2 H RBC 5.53 H Hct 49.4 H MCHC 30.9 L Neutrophils # Monocytes # PT APTT BUN 28 H Glucose 110 H Calcium Total Bilirubin 2.3 H AST 46 H ALT 60 H - Diagnostic Findings Chest x-ray: image reviewed Assessment and Plan Assessment: Lower extremity edema possibly related to mild congestive heart failure with mildly impaired left ventricular systolic function Intermittent second-degree heart block Hypertension History of mild intermittent chronic bronchial asthma Plan: The patient was seen and evaluated Chest x-ray, labs and medications reviewed Continue bronchodilators Stable and on room air Cardiology consult Echocardiogram reviewed We will continue to follow and make further recommendations based on her clinical status I have personally seen and examined the patient, performed the documentation and the assessment and plan as written. Number of minutes spent on the visit: 20.
[2023-06-15] MEDS: FUROSEMIDE 20 MG TAB PO SCH (16:45)
[2023-06-15] MEDS: hydrALAZINE HCL 20 MG/ML 1 ML VIAL IVP PRN (18:25)
[2023-06-15] MEDS: BENZONATATE 100 MG CAP PO PRN (18:25)
[2023-06-15] MEDS: SYMBICORT 80-4.5 MCG INHALER INHALATION SCH (19:01)
[2023-06-15] MEDS: ONDANSETRON 4 MG TAB PO PRN (21:41)
[2023-06-15] MEDS: LORazepam 0.5 MG TAB PO STA (21:41)
[2023-06-16 11:36] LABS: HCT 47.8 % (34.0-46.0); HGB 14.5 gm/dL (11.4-16.0); Hypochromasia Slight; MCH 27.6 pg (25.0-35.0); MCHC 30.3 g/dL (31.0-37.0); MCV 91.1 fL (80.0-100.0); Mean Platelet Volume 8.4; Platelet Count 237 k/uL (150-450); RBC 5.25 m/uL (3.80-5.40); RDW 14.3 % (11.5-15.5)
[2023-06-16 11:54] LABS: ALT 61 U/L (4-34); AST 46 U/L (14-36); African American GFR (CKD) 70 (>60 ml/min/1.73 sqM); Albumin 3.5 g/dL (3.5-5.0); Alkaline Phosphatase 63 U/L (38-126); Anion Gap 7 mmol/L; Blood Urea Nitrogen 28 mg/dL (7-17); Calcium 8.4 mg/dL (8.4-10.2); Carbon Dioxide 30 mmol/L (22-30); Chloride 101 mmol/L (98-107); Glucose 87 mg/dL (74-99); Non-African American GFR(CKD) 61 (>60 ml/min/1.73 sqM); Sodium 138 mmol/L (137-145); Total Bilirubin 2.9 mg/dL (0.2-1.3); Total Protein 6.4 g/dL (6.3-8.2)
[2023-06-16 12:30] LABS: Potassium 4.8 mmol/L (3.5-5.1)
[2023-06-16 13:09] VITALS: BMI 30.2
--- NOTE | 2023-06-16 14:35 | P.PN ---
Subjective Progress Note Date: 06/16/23 Principal diagnosis: Acute systolic congestive heart failure This is a 73-year-old female patient with a history of mild intermittent chronic bronchial asthma, secondhand smoke exposure however is a lifelong non-smoker who presented to the emergency room with complaints of lower extremity edema and some shortness of breath. She had been treated with diuretics in the outpatient setting without much improvement. Chest x-ray shows subsegmental atelectasis in the bases and a trace left pleural effusion. White count 13.2. Hemoglobin 15.3. Platelets 254. Sodium 140. Potassium 4.9. Bicarb 27. BUN 28. Creatinine 0.93. Viral screen is negative. proBNP 3560. Troponin negative x 3. Echocardiogram reveals a impaired left ventricular systolic function with ejection fraction 45 to 50%. EKG is revealing a second-degree intermittent heart block. He is seen today in consultation in the emergency department. She is currently sitting up in a stretcher. Awake and alert in no acute distress. She states her main issue is lower extremity edema. She denies any shortness of breath currently. She is maintaining good O2 saturations in the 90s on room air. She has been afebrile. Patient was reevaluated today on 06/16/23,Patient is feeling better today, less fluid buildup, less shortness of breath, she is on room air with O2 sats of 92%. Hemodynamically stable, not again in any distress. WBC count today is 12 hemoglobin 14.5 basic metabolic profile is normal renal profile remains normal screening for influenza A B and RSV as well as COVID-19 came back all negative. Troponin is a bit elevated and that is being addressed by cardiology. Echocardiogram did show evidence of moderate pulmonary hypertension. Right- sided pressures of 46. Objective - Vital Signs Vital signs: Vital Signs Temp 97.7 F 06/16/23 08:00 Pulse 84 06/16/23 12:41 Resp 16 06/16/23 12:00 BP 115/55 06/16/23 12:00 Pulse Ox 92 L 06/16/23 12:00 FiO2 Intake & Output 06/15/23 06/16/23 06/16/23 18:59 06:59 18:59 Intake Total 540 720 Output Total 150 Balance 540 570 Weight 90.265 kg 90.265 kg Intake: Oral 540 720 Output: Urine 150 Other: Voiding Method Toilet Toilet # Voids 1 - Exam GENERAL EXAM: Alert, 73-year-old female, on room air, comfortable in no apparent distress. HEAD: Normocephalic. EYES: Normal reaction of pupils, equal size. NOSE: Clear with pink turbinates. THROAT: No erythema or exudates. NECK: No masses, no JVD. CHEST: No chest wall deformity. LUNGS: Equal air entry with crackles in the left base. CVS: S1 and S2 normal with no audible murmur, irregular rhythm. ABDOMEN: No hepatosplenomegaly, normal bowel sounds, no guarding or rigidity. SKIN: No rashes CENTRAL NERVOUS SYSTEM: Alert and oriented x 3 no gross focal deficit EXTREMITIES: 1+ bipedal edema, improving compared to admission. - Labs CBC & Chem 7: 06/16/23 11:06 06/16/23 11:06 Labs: Abnormal Lab Results - Last 24 Hours (Table) 06/16/23 06/16/23 Range/Units 11:06 11:06 WBC 12.0 H (3.8-10.6) k/uL Hct 47.8 H (34.0-46.0) % MCHC 30.3 L (31.0-37.0) g/dL BUN 28 H (7-17) mg/dL Total Bilirubin 2.9 H (0.2-1.3) mg/dL AST 46 H (14-36) U/L ALT 61 H (4-34) U/L Assessment and Plan Assessment: Impression: Acute mild congestive heart failure, systolic in nature Acute right-sided congestive heart failure/cor pulmonale with fluid buildup in both lower extremities and moderate pulmonary hypertension Moderate pulmonary hypertension History of mild intermittent asthma. Recommendation: Continue diuretics Resume her home bronchodilators Echocardiogram report was reviewed Continue Lasix 20 mg p.o. every 8 hours Continue blood pressure medication Will continue to follow possible discharge planning in the next 24 to 48 hours. Will continue to follow Time with Patient: Less than 30
--- NOTE | 2023-06-16 14:56 | P.PN ---
Subjective Progress Note Date: 06/16/23 Principal diagnosis: patient 73-year-old lady with past medical history significant for COPD who presented to the ER for exertional dyspnea and lower extremity swelling. Patient stated that she has been noticing that she is getting short of breath on exertion for the last few weeks. Patient also been noticing that her lower extremities are swollen. Patient also complaining of orthopnea, uses 3 pillows to sleep. Denies any PND. Patient also complaining of chest pressure, central, nonradiating, no aggravating or relieving associated with this chest pressure. Patient also complaining of chest congestion and cough. There is no complaint of fever or chills. There is no complaint of any sick contacts in the family. Because of symptoms, patient came to the ER. Initial lab work done in the ER showed WBC 14.4, hemoglobin 16, platelet count 326, sodium 142, potassium 4.2, BUN 25, creatinine 0.86, glucose 92, calcium 10.5, bilirubin 1.4, AST 32, ALT 57, troponin 0.017 proBNP 3560 EKG done in the ER showed heart rate of 72, IA 204, QRS 135, no ST segment elevation or depression seen, no T-wave inversions seen. Chest x-ray done in the ER showed trace left pleural effusion Patient admitted to internal medicine service 06/15. Patient seen and examined. States swelling of legs is improved. Shortness of breath also improving. Blood work done this morning showed WBC 12, hemoglobin 14.5, sodium 138, potassium 4.8, BUN 28, creatinine 0.94 REVIEW OF SYSTEMS: CONSTITUTIONAL: No fever, no malaise,. CARDIOVASCULAR: No chest pain, no palpitations, no syncope. PULMONARY: No shortness of breath, no cough, GASTROINTESTINAL: No diarrhea, no nausea, no vomiting, no abdominal pain. NEUROLOGICAL: No headaches, no weakness, PHYSICAL EXAMINATION: GENERAL: The patient is alert and oriented x3, not in any acute distress. Well developed, well nourished. HEENT: Pupils are round and equally reacting to light. EOMI. No scleral icterus. No conjunctival pallor. Normocephalic, atraumatic. No pharyngeal erythema. No thyromegaly. CARDIOVASCULAR: S1 and S2 present. No murmurs, rubs, or gallops. PULMONARY: Chest is clear to auscultation, no wheezing or crackles. ABDOMEN: Soft, nontender, nondistended, normoactive bowel sounds. No palpable organomegaly. MUSCULOSKELETAL: No joint swelling or deformity. EXTREMITIES: 1+ pitting edema of lower extremities bilaterally NEUROLOGICAL: Gross neurological examination did not reveal any focal deficits. SKIN: No rashes. Assessment and plan Exertional dyspnea Acute CHF Acute COPD exacerbation Monitor vital signs Monitor CBC Monitor CMP Continue telemetry monitoring Trend troponins. Strict I's and O's, daily weights Continue IV Lasix 20 mg every 8 2D echo done showed LVEF at 45 to 50%. LVEF appears lower than normal due to irregular cardiac rhythm mildly increased wall thickness and mild left ventricle dilatation Continue breathing treatment Pulmonary following -cardiology following Labs and medication were reviewed.. Continue same treatment. Continue with symptomatic treatment. Resume home medication. Monitor labs and vitals. DVT and GI prophylaxis. Further recommendations as per clinical course of the patient Dictation was produced using [employer] dictation software. please excuse any gramm atical, word or spelling errors. Objective - Vital Signs Vital signs: Vital Signs Temp 97.7 F 06/16/23 08:00 Pulse 84 06/16/23 12:41 Resp 16 06/16/23 12:00 BP 115/55 06/16/23 12:00 Pulse Ox 92 L 06/16/23 12:00 FiO2 Intake & Output 06/15/23 06/16/23 06/16/23 18:59 06:59 18:59 Intake Total 540 720 Output Total 150 Balance 540 570 Weight 90.265 kg 90.265 kg Intake: Oral 540 720 Output: Urine 150 Other: Voiding Method Toilet Toilet # Voids 1 - Labs CBC & Chem 7: 06/16/23 11:06 06/16/23 11:06 Labs: Abnormal Lab Results - Last 24 Hours (Table) 06/16/23 06/16/23 Range/Units 11:06 11:06 WBC 12.0 H (3.8-10.6) k/uL Hct 47.8 H (34.0-46.0) % MCHC 30.3 L (31.0-37.0) g/dL BUN 28 H (7-17) mg/dL Total Bilirubin 2.9 H (0.2-1.3) mg/dL AST 46 H (14-36) U/L ALT 61 H (4-34) U/L
--- NOTE | 2023-06-16 19:04 | P.PN ---
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 She has a past medical history of COPD from secondhand smoke. Patient presented to the emergency center due to lower extremity edema and dyspnea on exertion. Patient also states that she had a fall in the living room a couple days ago when she tripped. She denies any loss of consciousness. Her symptoms of dyspnea on exertion and edema have been going on for the last couple of days. She denies any lightheadedness or dizziness. No cough or sputum production. Patient states that she sometimes feels that her heart is racing which started last week. At the time of evaluation, she states she feels that it is fast but is really running in the 70s. She thinks it may be related to anxiety. Patient's main concern at this point is constipation. She states she had a bowel movement yesterday and we will have nursing contact attending. Patient states that she has been a lifelong non-smoker but was exposed to secondhand smoke. Patient is seen today in the emergency center waiting for a bed on the cardiac stepdown unit. Heart rate has been down to 38 at the lowest, initial blood pressure 152/116. Patient is status post IV Lasix and has been continued on 40 mg every 8 hours. She states lower extremity edema is improved. EKG second-degree heart block, intermittent Chest x-ray: Trace left pleural effusion Echocardiogram reveals EF of 45 to 50%. LVEF appears lower than normal due to irregular heart rhythm. Today mild left ventricular dilatation. No wall motion abnormality. Diastolic MR, mild MR. Mild RV dilatation RVSP 46 mmHg. WBC 14.4, hemoglobin 16, platelet count 326. INR 0.9. Electrolytes are normal, BUN 25 creatinine 0.86. Calcium 10.5. Magnesium 2.1. Total bilirubin 1.4, ALT 57. AST and alkaline phosphatase normal range. Troponin negative x 3. proBNP 3560. Home cardiac medications: Lasix 20 mg daily Progress note June 16, 2023 Patient is seen and examined at bedside this a.m. Patient continues to have intermittent second-degree blocks on telemetry but nothing sustained. She does not have any sustained pauses. He appears less volume overloaded as compared to yesterday. Physical examination: Gen: This is a 73-year-old female in no acute distress VS: reviewed HEENT: Head is atraumatic, normocephalic. Pupils equal, round. Sclerae is anicteric. NECK: Supple. No JVD. LUNGS: Clear to auscultation. No wheezes or rhonchi. No intercostal retractions. HEART: Irregular rate and rhythm. ABDOMEN: Soft No tenderness. EXTREMITIES: 1+ pedal edema. No calf tenderness. NEUROLOGICAL: Patient is awake, alert and oriented x3. Assessment: Secondary heart block running in the 60s, intermittent No syncopal episode Accelerated hypertension Plan: Patient's TSH came back normal. Walk the patient in unit with telemetry to see chronotropic competence. Continue Lasix but decrease dose to 20 mg every 8 hours Start patient on losartan 50 mg daily Continue telemetry monitoring Patient may require pacemaker but plan to monitor the patient for another 24 hours Objective - Vital Signs Vital signs: Vital Signs Temp 97.7 F 06/16/23 08:00 Pulse 94 06/16/23 17:51 Resp 17 06/16/23 17:51 BP 114/70 06/16/23 17:51 Pulse Ox 93 L 06/16/23 17:51 FiO2 Intake & Output 06/16/23 06/16/23 06/17/23 06:59 18:59 06:59 Intake Total 1078 Output Total 150 Balance 928 Weight 90.265 kg Intake: Oral 1078 Output: Urine 150 Other: Voiding Method Toilet Toilet # Voids 1 4 - Labs CBC & Chem 7: 06/16/23 11:06 06/16/23 11:06 Labs: Abnormal Lab Results - Last 24 Hours (Table) 06/16/23 06/16/23 Range/Units 11:06 11:06 WBC 12.0 H (3.8-10.6) k/uL Hct 47.8 H (34.0-46.0) % MCHC 30.3 L (31.0-37.0) g/dL BUN 28 H (7-17) mg/dL Total Bilirubin 2.9 H (0.2-1.3) mg/dL AST 46 H (14-36) U/L ALT 61 H (4-34) U/L
[2023-06-16] MEDS: diphenhydrAMINE 25 MG CAP PO PRN (23:23)
--- NOTE | 2023-06-17 13:17 | P.PN ---
Subjective Progress Note Date: 06/17/23 Principal diagnosis: patient 73-year-old lady with past medical history significant for COPD who presented to the ER for exertional dyspnea and lower extremity swelling. Patient stated that she has been noticing that she is getting short of breath on exertion for the last few weeks. Patient also been noticing that her lower extremities are swollen. Patient also complaining of orthopnea, uses 3 pillows to sleep. Denies any PND. Patient also complaining of chest pressure, central, nonradiating, no aggravating or relieving associated with this chest pressure. Patient also complaining of chest congestion and cough. There is no complaint of fever or chills. There is no complaint of any sick contacts in the family. Because of symptoms, patient came to the ER. Initial lab work done in the ER showed WBC 14.4, hemoglobin 16, platelet count 326, sodium 142, potassium 4.2, BUN 25, creatinine 0.86, glucose 92, calcium 10.5, bilirubin 1.4, AST 32, ALT 57, troponin 0.017 proBNP 3560 EKG done in the ER showed heart rate of 72, [place] 204, QRS 135, no ST segment elevation or depression seen, no T-wave inversions seen. Chest x-ray done in the ER showed trace left pleural effusion Patient admitted to internal medicine service 06/15. Patient seen and examined. States swelling of legs is improved. Shortness of breath also improving. Blood work done this morning showed WBC 12, hemoglobin 14.5, sodium 138, potassium 4.8, BUN 28, creatinine 0.94 06/16. Patient seen and examined. States she feels better, swelling of legs has improved. Cardiology planning stress test in the morning REVIEW OF SYSTEMS: CONSTITUTIONAL: No fever, no malaise,. CARDIOVASCULAR: No chest pain, no palpitations, no syncope. PULMONARY: No shortness of breath, no cough, GASTROINTESTINAL: No diarrhea, no nausea, no vomiting, no abdominal pain. NEUROLOGICAL: No headaches, no weakness, PHYSICAL EXAMINATION: GENERAL: The patient is alert and oriented x3, not in any acute distress. Well developed, well nourished. HEENT: Pupils are round and equally reacting to light. EOMI. No scleral icterus. No conjunctival pallor. Normocephalic, atraumatic. No pharyngeal erythema. No thyromegaly. CARDIOVASCULAR: S1 and S2 present. No murmurs, rubs, or gallops. PULMONARY: Chest is clear to auscultation, no wheezing or crackles. ABDOMEN: Soft, nontender, nondistended, normoactive bowel sounds. No palpable organomegaly. MUSCULOSKELETAL: No joint swelling or deformity. EXTREMITIES: 1+ pitting edema of lower extremities bilaterally NEUROLOGICAL: Gross neurological examination did not reveal any focal deficits. SKIN: No rashes. Assessment and plan Exertional dyspnea Acute CHF Acute COPD exacerbation Monitor vital signs Monitor CBC Monitor CMP Continue telemetry monitoring Trend troponins. Strict I's and O's, daily weights Continue IV Lasix 20 mg every 8 2D echo done showed LVEF at 45 to 50%. LVEF appears lower than normal due to irregular cardiac rhythm mildly increased wall thickness and mild left ventricle dilatation Continue breathing treatment Pulmonary following -cardiology following, planning stress test in the morning Labs and medication were reviewed.. Continue same treatment. Continue with symptomatic treatment. Resume home medication. Monitor labs and vitals. DVT and GI prophylaxis. Further recommendations as per clinical course of the patient Dictation was produced using [employer] dictation software. please excuse any grammatical, word or spelling errors. Objective - Vital Signs Vital signs: Vital Signs Temp 98.1 F 06/17/23 08:41 Pulse 91 06/17/23 08:41 Resp 20 06/17/23 08:41 BP 123/77 06/17/23 08:41 Pulse Ox 89 L 06/17/23 08:41 FiO2 Intake & Output 06/16/23 06/17/23 06/17/23 18:59 06:59 18:59 Intake Total 1078 0 Output Total 150 250 Balance 928 -250 0 Weight 90.265 kg Intake: Oral 1078 0 Output: Urine 150 250 Other: Voiding Method Toilet Toilet # Voids 4 0 - Labs CBC & Chem 7: 06/16/23 11:06 06/16/23 11:06 Labs: Abnormal Lab Results - Last 24 Hours (Table) 06/16/23 06/16/23 Range/Units 11:06 11:06 WBC 12.0 H (3.8-10.6) k/uL Hct 47.8 H (34.0-46.0) % MCHC 30.3 L (31.0-37.0) g/dL BUN 28 H (7-17) mg/dL Total Bilirubin 2.9 H (0.2-1.3) mg/dL AST 46 H (14-36) U/L ALT 61 H (4-34) U/L
--- NOTE | 2023-06-17 14:29 | P.PN ---
Subjective Progress Note Date: 06/17/23 Principal diagnosis: Acute systolic congestive heart failure This is a 73-year-old female patient with a history of mild intermittent chronic bronchial asthma, secondhand smoke exposure however is a lifelong non-smoker who presented to the emergency room with complaints of lower extremity edema and some shortness of breath. She had been treated with diuretics in the outpatient setting without much improvement. Chest x-ray shows subsegmental atelectasis in the bases and a trace left pleural effusion. White count 13.2. Hemoglobin 15.3. Platelets 254. Sodium 140. Potassium 4.9. Bicarb 27. BUN 28. Creatinine 0.93. Viral screen is negative. proBNP 3560. Troponin negative x 3. Echocardiogram reveals a impaired left ventricular systolic function with ejection fraction 45 to 50%. EKG is revealing a second-degree intermittent heart block. He is seen today in consultation in the emergency department. She is currently sitting up in a stretcher. Awake and alert in no acute distress. She states her main issue is lower extremity edema. She denies any shortness of breath currently. She is maintaining good O2 saturations in the 90s on room air. She has been afebrile. Patient was reevaluated today on 06/16/23,Patient is feeling better today, less fluid buildup, less shortness of breath, she is on room air with O2 sats of 92%. Hemodynamically stable, not again in any distress. WBC count today is 12 hemoglobin 14.5 basic metabolic profile is normal renal profile remains normal screening for influenza A B and RSV as well as COVID-19 came back all negative. Troponin is a bit elevated and that is being addressed by cardiology. Echocardiogram did show evidence of moderate pulmonary hypertension. Right- sided pressures of 46. Reevaluate today on 06/17/2023, patient remains on diuretics, feeling better, breathing easier. Patient denies any shortness of breath, her leg swelling is improving. Cardiology is addressing possible pacemaker implantation for second degree heart block on admission. Patient had no syncopal episodes. Obviously the patient is having intermittent second-degree AV block on telemetry, but nothing sustained. No pauses noted. Patient is improving with diuresis, and she remains on Lasix 20 mg p.o. 3 times daily WBC count is 12 hemoglobin 14.5 basic metabolic profile is normal renal profile is normal Objective - Vital Signs Vital signs: Vital Signs Temp 98.1 F 03/31/24 08:41 Pulse 83 06/17/23 11:51 Resp 20 06/17/23 11:51 BP 147/75 06/17/23 11:51 Pulse Ox 100 06/17/23 11:51 FiO2 Intake & Output 06/16/23 06/17/23 06/17/23 18:59 06:59 18:59 Intake Total 1078 120 Output Total 150 250 200 Balance 928 -250 -80 Weight 90.265 kg Intake: Oral 1078 120 Output: Urine 150 250 200 Other: Voiding Method Toilet Toilet Toilet # Voids 4 0 - Exam GENERAL EXAM: Alert, 73-year-old female, on room air, comfortable in no apparent distress. HEAD: Normocephalic. EYES: Normal reaction of pupils, equal size. NOSE: Clear with pink turbinates. THROAT: No erythema or exudates. NECK: No masses, no JVD. CHEST: No chest wall deformity. LUNGS: Diminished breath sound bilaterally no rhonchi no wheeze CVS: S1 and S2 normal with no audible murmur, irregular rhythm. ABDOMEN: No hepatosplenomegaly, normal bowel sounds, no guarding or rigidity. SKIN: No rashes CENTRAL NERVOUS SYSTEM: Alert and oriented x 3 no gross focal deficit EXTREMITIES: 1+ bipedal edema - Labs CBC & Chem 7: 06/16/23 11:06 06/16/23 11:06 Assessment and Plan Assessment: Impression: Acute mild congestive heart failure, systolic in nature Second degree heart block, intermittent Acute right-sided congestive heart failure/cor pulmonale with fluid buildup in both lower extremities and moderate pulmonary hypertension Moderate pulmonary hypertension History of mild intermittent asthma. Recommendation: Continue diuretics Echocardiogram report was reviewed Continue Lasix 20 mg p.o. every 8 hours Continue blood pressure medication Cardiology is considering pacemaker implantation Will follow as needed Time with Patient: Less than 30
[2023-06-17 15:26] VITALS: RESP 18
[2023-06-17] MEDS: SODIUM CHLORIDE 0.9% 1,000 ML IV SCH ×2 (17:52)
[2023-06-18] MEDS: ALPRAZolam 0.25 MG TAB PO STA (02:57)
--- NOTE | 2023-06-18 13:03 | P.PN ---
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 She has a past medical history of COPD from secondhand smoke. Patient presented to the emergency center due to lower extremity edema and dyspnea on exertion. Patient also states that she had a fall in the living room a couple days ago when she tripped. She denies any loss of consciousness. Her symptoms of dyspnea on exertion and edema have been going on for the last couple of days. She denies any lightheadedness or dizziness. No cough or sputum production. Patient states that she sometimes feels that her heart is racing which started last week. At the time of evaluation, she states she feels that it is fast but is really running in the 70s. She thinks it may be related to anxiety. Patient's main concern at this point is constipation. She states she had a bowel movement yesterday and we will have nursing contact attending. Patient states that she has been a lifelong non-smoker but was exposed to secondhand smoke. Patient is seen today in the emergency center waiting for a bed on the cardiac stepdown unit. Heart rate has been down to 38 at the lowest, initial blood pressure 152/116. Patient is status post IV Lasix and has been continued on 40 mg every 8 hours. She states lower extremity edema is improved. EKG second-degree heart block, intermittent Chest x-ray: Trace left pleural effusion Echocardiogram reveals EF of 45 to 50%. LVEF appears lower than normal due to irregular heart rhythm. Today mild left ventricular dilatation. No wall motion abnormality. Diastolic MR, mild MR. Mild RV dilatation RVSP 46 mmHg. WBC 14.4, hemoglobin 16, platelet count 326. INR 0.9. Electrolytes are normal, BUN 25 creatinine 0.86. Calcium 10.5. Magnesium 2.1. Total bilirubin 1.4, ALT 57. AST and alkaline phosphatase normal range. Troponin negative x 3. proBNP 3560. Home cardiac medications: Lasix 20 mg daily Progress note June 16, 2023 Patient is seen and examined at bedside this a.m. Patient continues to have intermittent second-degree blocks on telemetry but nothing sustained. She does not have any sustained pauses. He appears less volume overloaded as compared to yesterday. 06/18/2023 Patient examined this morning at the bedside. Patient currently denies chest pain or pressure. She denies shortness of breath. Vital signs are stable. Telemetry reveals sinus mechanism. Patient was initially scheduled for a pacemaker implantation today. However this was canceled by Dr. Pollard and plan is for 2-week event monitor instead. PHYSICAL EXAM: VITAL SIGNS: Reviewed. GENERAL: Well-developed in no acute distress. NECK: Supple. No JVD or thyromegaly LUNGS: Respirations even and unlabored. Lungs essentially clear to auscultation bilaterally. HEART: Regular rate and rhythm. S1 and S2 heard. EXTREMITIES: Normal range of motion. No clubbing or cyanosis. Peripheral pulses intact. No lower extremity edema ASSESSMENT: Acute on chronic heart failure with mildly reduced EF, 45 to 50% Intermittent second degree heart block without episodes of syncope Hypertension History of COPD PLAN: Dr. Pollard canceled pacemaker implantation for today. Instead, patient will be discharged home with a 2-week event monitor Continue additional cardiac medications Continue oral diuretics Patient may be discharged home today from a cardiac standpoint She is to follow-up postdischarge in the office with Dr. Pollard Nurse practitioner note has been reviewed by physician. Signing provider agrees with the documented findings, assessment, and plan of care documented by CIVIL DESIGN SPECIALIST as a scribe. Objective - Vital Signs Vital signs: Vital Signs Temp 97.8 F 06/18/23 00:00 Pulse 82 06/18/23 11:29 Resp 18 06/18/23 04:00 BP 141/70 06/18/23 04:00 Pulse Ox 93 L 06/18/23 08:09 FiO2 Intake & Output 06/17/23 06/18/23 06/18/23 18:59 06:59 18:59 Intake Total 240 Output Total 700 500 500 Balance -460 -500 -500 Weight 99.7 kg Intake: Oral 240 Output: Urine 700 500 500 Other: Voiding Method Toilet Toilet - Labs CBC & Chem 7: 06/16/23 11:06 06/16/23 11:06
[2023-06-18 14:14] VITALS: BP 137/71; PULSE 56; TEMP 97.9
--- NOTE | 2023-06-18 14:39 | P.PN ---
Subjective Progress Note Date: 06/18/23 This is a 73-year-old female patient with a history of mild intermittent chronic bronchial asthma, secondhand smoke exposure however is a lifelong non-smoker who presented to the emergency room with complaints of lower extremity edema and some shortness of breath. She had been treated with diuretics in the outpatient setting without much improvement. Chest x-ray shows subsegmental atelectasis in the bases and a trace left pleural effusion. White count 13.2. Hemoglobin 15.3. Platelets 254. Sodium 140. Potassium 4.9. Bicarb 27. BUN 28. Creatinine 0.93. Viral screen is negative. proBNP 3560. Troponin negative x 3. Echocardiogram reveals a impaired left ventricular systolic function with ejection fraction 45 to 50%. EKG is revealing a second-degree intermittent heart block. He is seen today in consultation in the emergency department. She is currently sitting up in a stretcher. Awake and alert in no acute distress. She states her main issue is lower extremity edema. She denies any shortness of breath currently. She is maintaining good O2 saturations in the 90s on room air. She has been afebrile. Patient was reevaluated today on 06/16/23,Patient is feeling better today, less fluid buildup, less shortness of breath, she is on room air with O2 sats of 92%. Hemodynamically stable, not again in any distress. WBC count today is 12 hemoglobin 14.5 basic metabolic profile is normal renal profile remains normal screening for influenza A B and RSV as well as COVID-19 came back all negative. Troponin is a bit elevated and that is being addressed by cardiology. Echocard iogram did show evidence of moderate pulmonary hypertension. Right-sided pressures of 46. Reevaluate today on 06/17/2023, patient remains on diuretics, feeling better, breathing easier. Patient denies any shortness of breath, her leg swelling is improving. Cardiology is addressing possible pacemaker implantation for second degree heart block on admission. Patient had no syncopal episodes. Obviously the patient is having intermittent second-degree AV block on telemetry, but nothing sustained. No pauses noted. Patient is improving with diuresis, and she remains on Lasix 20 mg p.o. 3 times daily WBC count is 12 hemoglobin 14.5 basic metabolic profile is normal renal profile is normal The patient is seen today June 18, 2023 in follow-up on the elective care unit. She is currently sitting up in bed. Awake and alert in no acute distress. Denies any worsening shortness of breath, cough or congestion. She is maintaining O2 saturation in the 90s on room air. She denies any dizziness or lightheadedness. Denies any palpitations. No new labs today. Heart rate in the high 70s low 80s. Hemodynamically stable. Objective - Vital Signs Vital signs: Vital Signs Temp 97.9 F 06/18/23 08:00 Pulse 82 06/18/23 11:29 Resp 18 06/18/23 08:00 BP 137/71 06/18/23 08:00 Pulse Ox 93 L 06/18/23 08:09 FiO2 Intake & Output 06/17/23 06/18/23 06/18/23 18:59 06:59 18:59 Intake Total 240 180 Output Total 700 500 500 Balance -460 -500 -320 Weight 99.7 kg Intake: Oral 240 180 Output: Urine 700 500 500 Other: Voiding Method Toilet Toilet Toilet - Exam GENERAL EXAM: Alert, active, pleasant 73-year-old female, on room air, comfortable in no apparent distress. HEAD: Normocephalic. EYES: Normal reaction of pupils, equal size. NOSE: Clear with pink turbinates. THROAT: No erythema or exudates. NECK: No masses, no JVD. CHEST: No chest wall deformity. LUNGS: Equal air entry with no crackles, wheeze, rhonchi or dullness. CVS: S1 and S2 normal with no audible murmur, regular rhythm. ABDOMEN: No hepatosplenomegaly, normal bowel sounds, no guarding or rigidity. SPINE: No scoliosis or deformity SKIN: No rashes CENTRAL NERVOUS SYSTEM: No focal deficits, tone is normal in all 4 extremities. EXTREMITIES: There is no peripheral edema. No clubbing, no cyanosis. Peripheral pulses are intact. - Labs CBC & Chem 7: 06/16/23 11:06 06/16/23 11:06 Assessment and Plan Assessment: Lower extremity edema possibly related to mild congestive heart failure with mildly impaired left ventricular systolic function Intermittent second-degree heart block Hypertension History of mild intermittent chronic bronchial asthma Plan: The patient was seen and evaluated Medications reviewed Continue bronchodilators Stable and on room air Home once cleared by cardiology I have personally seen and examined the patient, performed the documentation and the assessment and plan as written. Number of minutes spent on the visit: 10.
[2023-06-18] MEDS ORDERED: FUROSEMIDE 20 MG TAB PO SCH (16:00)
--- NOTE | 2023-06-21 15:37 | P.DS ---
Providers Date of admission: 06/14/23 18:30 Expected date of discharge: 06/18/23 Attending physician: Eros Balderrama Consults: 06/14/23 18:28 Consult Physician Routine Consulting Provider: Cyrus Andrews Consult Reason/Comments: copd Do you want consulting provider notified?: Yes Consult Physician Routine Consulting Provider: Venice Reyna Consult Reason/Comments: EVETTE Do you want consulting provider notified?: Yes Primary care physician: Ana Maria Henning Hospital Course: Final diagnosis Exertional dyspnea secondary to CHF exacerbation Acute CHF, with acute on chronic heart failure, with Reduced EF, 45 to 50% Intermittent second-degree heart block without episode of syncope history of hypertension History of COPD, not in exacerbation Obesity with a BMI 33.4 GI prophylaxis DVT prophylaxis Full code Discharge disposition Patient is being discharged in a stable condition with guarded prognosis to home. Patient will follow-up with Dr. Henning in the outpatient setting upon discharge. Patient is to continue with current medications and close outpatient follow-up with cardiology as scheduled. Total time taken is greater than 35 minutes. Hospital course This is a 73-year-old female who was recently admitted with exertional dyspnea with increased shortness of breath with CHF exacerbation as well as COPD exacerbation. Patient was being evaluated by cardiology with plans of possible pacemaker although has been canceled recommending outpatient follow-up with Dr. Pollard in the outpatient setting. Patient has been cleared by cardiology for outpatient follow-up. Please refer to cardiology notes for further HPI. Currently no reports of chest pain, shortness of breath, or palpitations. Patient is afebrile. No reports of nausea or vomiting and patient is tolerating diet. Patient will be discharged home today. Guarded prognosis Physical exam: Gen: This is a 73-year-old female who is awake, alert and oriented x 3, well- developed, well-nourished, obese HEENT: Head is atraumatic, normocephalic. Pupils equal, round. Sclerae is anicteric. NECK: Supple. No JVD. No lymphadenopathy. No thyromegaly. LUNGS: Diminished breath sounds bilaterally otherwise clear to auscultation. No wheezes or rhonchi. No intercostal retractions. HEART: S1, S2 are muffled ABDOMEN: Soft. Bowel sounds are present. No masses. No tenderness. EXTREMITIES: No pedal edema. No calf tenderness. NEUROLOGICAL: Patient is awake, alert and oriented x3. Cranial nerves 2 through 12 are grossly intact. Please refer to medication reconciliation sheet for a list of medications. The impression and plan of care has been dictated by Lynette Perdomo, Nurse Practitioner as directed. Dr. Tacos MD I have performed a history and examination and MDM of this patient, discussed the same with the dictator, and agree with the dictator's assessment and plan as written ,documented as a scribe. Based on total visit time, I have performed more than 50% of the visit. Patient Condition at Discharge: Stable Plan - Discharge Summary Discharge Rx Participant: No New Discharge Prescriptions: New Losartan [Cozaar] 50 mg PO DAILY #30 tab Furosemide [Lasix] 20 mg PO BID@0900,1600 #60 tab Benzonatate [Tessalon Perles] 100 mg PO TID PRN #10 cap PRN Reason: Cough Continue QUEtiapine [SEROquel] 50 mg PO HS Melatonin 10 mg PO HS Fluticasone Propion/Salmeterol [Fluticasone-Salmeterol 100-50] 1 puff INHALATION RT-BID Albuterol Sulfate [Albuterol Sulfate Hfa] 2 puff INHALATION RT-QID PRN PRN Reason: Shortness Of Breath predniSONE [Deltasone] 20 mg PO BID Discontinued Furosemide [Lasix] 20 mg PO DAILY Discharge Medication List QUEtiapine [SEROquel] 50 mg PO HS 02/28/21 [History] Albuterol Sulfate [Albuterol Sulfate Hfa] 2 puff INHALATION RT-QID PRN 06/14/23 [History] Fluticasone Propion/Salmeterol [Fluticasone-Salmeterol 100-50] 1 puff INHALATION RT-BID 06/14/23 [History] Melatonin 10 mg PO HS 06/14/23 [History] predniSONE [Deltasone] 20 mg PO BID 06/14/23 [History] Benzonatate [Tessalon Perles] 100 mg PO TID PRN #10 cap 06/18/23 [Rx] Furosemide [Lasix] 20 mg PO BID@0900,1600 #60 tab 06/18/23 [Rx] Losartan [Cozaar] 50 mg PO DAILY #30 tab 06/18/23 [Rx] Follow up Appointment(s)/Referral(s): Nata Pollard MD [STAFF PHYSICIAN] - 3 Weeks (Office will call with follow up appointment date and time ) Ana Maria Henning DO [Primary Care Provider] - 06/20/23 1:00 pm Patient Instructions/Handouts: Heart Failure (DC) Activity/Diet/Wound Care/Special Instructions: Activity limited until follow-up Follow-up with primary care provider on discharge Follow-up with cardiology outpatient in 2 to 3 weeks Continue with the event monitor until cardiology follow-up Continue taking medications as prescribed Discharge Disposition: HOME SELF-CARE
== END 2023-06-18 14:35 | disposition home or self-care (01) | DRG 291 ==
LOC: EC 15:27 → 3SCARD 18:30
PROVIDERS: ADMIT Hospitalist; ATTEND Hospitalist
DX: I11.0 Hypertensive heart disease with heart failure (principal); I50.23 Acute on chronic systolic (congestive) heart failure; J44.1 Chronic obstructive pulmonary disease with (acute) exacerbation; I27.29 Other secondary pulmonary hypertension; I27.81 Cor pulmonale (chronic); I44.1 Atrioventricular block, second degree; I08.1 Rheumatic disorders of both mitral and tricuspid valves; I50.82 Biventricular heart failure; J45.20 Mild intermittent asthma, uncomplicated; R00.1 Bradycardia, unspecified; W01.0XXA Fall on same level from slipping, tripping and stumbling without subsequent striking against object, initial encounter; Z77.22 Contact with and (suspected) exposure to environmental tobacco smoke (acute) (chronic); Y92.008 Other place in unspecified non-institutional (private) residence as the place of occurrence of the external cause; Z79.51 Long term (current) use of inhaled steroids; Z79.899 Other long term (current) drug therapy; Z79.52 Long term (current) use of systemic steroids; Z88.1 Allergy status to other antibiotic agents; Z88.5 Allergy status to narcotic agent; Z91.030 Bee allergy status; Z91.041 Radiographic dye allergy status
CPT/HCPCS: 36415; 71046; 80053; 83735; 83880; 84443; 84484; 85025; 85027; 85610; 85730; 87636; 93005; 93270; 93306; 94640; 94760; 96374; 96375; 99291

== ENCOUNTER → 2023-06-29 | Outpatient (CLI) | payer MEDICARE ==
[2023-06-29 15:44] LABS: Basophils # (A) 0.06 X 10*3/uL (0.00-0.10); Basophils % (A) 0.7 %; Eosinophils # (A) 0.21 X 10*3/uL (0.04-0.35); Eosinophils % (A) 2.4 %; HCT 46.9 % (37.2-46.3); HGB 14.6 g/dL (12.0-15.0); Lymphocytes # (A) 1.02 X 10*3/uL (0.90-5.00); Lymphocytes % (A) 11.8 %; MCH 27.9 pg (27.0-32.0); MCHC 31.1 g/dL (32.0-37.0); MCV 89.7 FL (80.0-97.0); Monocytes % (A) 8.1 %; NRBC Per 100 WBC 0 X 10*3/uL (0.00-0.01); Neutrophils % (A) 76.8 %; Platelet Count 274 X 10*3/uL (140-440); RBC 5.23 X 10*6/uL (4.10-5.20); RDW 14.6 % (11.5-14.5); WBC 8.61 X 10*3/uL (4.50-10.00)
[2023-06-29 16:34] LABS: Blood Urea Nitrogen 20.4 mg/dL (9.0-27.0); Carbon Dioxide 27.2 mmol/L (21.6-31.8); Chloride 104 mmol/L (96-109); Sodium 143 mmol/L (135-145)
== END | disposition home or self-care (01) ==
LOC: LABPAT 10:33
PROVIDERS: ATTEND Internal Medicine Interventional Cardiology
DX: Z01.812 Encounter for preprocedural laboratory examination (principal); I49.5 Sick sinus syndrome
CPT/HCPCS: 80051; 82565; 84520; 85025

== ENCOUNTER 2023-07-04 07:33 | Day surgery (SDC) | payer MEDICARE ==
[2023-07-04] MEDS: SODIUM CHLORIDE 0.9% 1,000 ML IV SCH (08:04)
[2023-07-04] MEDS ORDERED: LIDOCAINE 1% INJ 10MG/ML (20 ML MDV) ONE ×2 (08:25)
[2023-07-04] MEDS: diphenhydrAMINE 50 MG/ML 1 ML VIAL IVP PRN (08:32)
[2023-07-04] MEDS: methylPREDNISolone SOD SUCCI 40 MG/ML 1 ML VIAL IV STA (08:32)
[2023-07-04] MEDS: FAMOTIDINE 20 MG/2 ML VIAL IV SCH (08:32)
[2023-07-04] MEDS ORDERED: diphenhydrAMINE 50 MG/ML 1 ML VIAL ONE (08:33)
[2023-07-04] MEDS: ceFAZolin 1 GM in SODIUM CHLORIDE 0.9% IRRIG BTL 250 ML IRRIGATION PRN ×2 (08:37→10:59)
[2023-07-04] MEDS: IOPAMIDOL-370 100ML BTL IVP ONE (08:57)
[2023-07-04] MEDS ORDERED: fentaNYL (PF) 50 MCG/ML 2 ML AMP ONE (09:28)
[2023-07-04] MEDS: MIDAZOLAM 2 MG/2 ML VIAL IVP ONE (09:30)
[2023-07-04] MEDS: fentaNYL (PF) 50 MCG/ML 2 ML AMP IVP ONE (09:30)
[2023-07-04] MEDS: LIDOCAINE 1% INJ 10MG/ML (20 ML MDV) SQ ONE (09:38)
[2023-07-04] MEDS: HYDROmorphone 0.5 MG/0.5 ML SYRINGE IVP ONE (10:16)
[2023-07-04] MEDS ORDERED: ALBUTEROL NEBULIZED 2.5 MG/3 ML INHALATION PRN (11:16)
[2023-07-04] MEDS ORDERED: BENZONATATE 100 MG CAP PO PRN (11:16)
--- NOTE | 2023-07-04 11:38 | P.PCN ---
Date of Procedure: 07/04/23 Description of Procedure: Procedure(s): Dual Chamber Permanent Pacemaker Implantation; Cardiac Fluoroscopy Indications: High-grade second-degree AV block with symptoms of near syncope and right bundle branch block Preprocedure Diagnosis: Right bundle branch block and high-grade second-degree AV block with near syncope Postprocedure Diagnosis: Right bundle branch block and high-grade AV block with near syncope Procedure Details: The risks, benefits, complications, treatment options, and expected outcomes were discussed with the patient. The patient and her concurred with the proposed plan, giving informed consent. Patient was prepped and draped in the usual strict sterile fashion. After the antibiotic was completely infused, 20 mL of 1% lidocaine was infiltrated into the area just medial to the left deltopectoral groove. Using a micropuncture needle technique with fluoroscopic guidance two access points were obtained into the axillary vein. 2 wires were advanced under to access fluoroscopic guidance in In the right atrium. Using a #15 scalpel, an incision was made. The incision was extended to the pre-pectoral fascia using blunt dissection. Using cautery and dissection a pocket was made. A guidewire was advanced to the heart underfluoroscopic guidance. Sheath was advanced over the guidewire. A guidewire was retained, and dilator was removed. A pacemaker lead was advanced to the heart under fluoroscopic guidance. The sheath was peeled away. The lead was fixated to the right ventricular apical septum. Appropriate sensing and thresholds were obtained. No diaphragmatic pacing occurred at 10 V and 1.5 ms. As second sheath was advanced over the guidewire. The dilator and guidewire were removed. A pacemaker lead was advanced to the heart under fluoroscopic guidance. The sheath was peeled away. The lead was fixated to the right atrial appendage. Appropriate sensing and thresholds were obtained. No diaphragmatic pacing occurred at 10 V and 1.5 ms. Both were active leads and both the leads were screwed and and secured to the underlying muscle using 2 separate 0 silk sutures. Hemostasis was achieved. The measurements were then rechecked. A left pre-pectoral pocket was fashioned.The pocket was irrigated with antibiotic and I left an antibiotic sponge in the pocket for 30 minutes. The leads were attached to the generator. The system was placed in the pocket. The pacemaker and lead system were visualized under fluoroscopy. Appropriate redundancy/slack in the leads were noted. The pins of the leads were beyond the set screws. The pulse generator was also secured to the underlying muscle using a 0 silk suture. Hemostasis was reverified. The pocket was then closed with 2.0 and 3.0 Vicryl. Steri-Strips, a gauze dressing, and operative site were placed. Pacemaker Wax Pumper : Medtronic model W1 DR 01 serial number [id number] Atrial lead web retailer: Medtronic model 507 65 2 serial number [id number] Placed in the right atrial appendage Right ventricular lead web retailer: Medtronic model 507 65 8 serial number [id number] placed in the RV apical septum The pacemaker was set at a lower rate of 60 high rate of 120 BPM the remote was DDD AV paced delay was 180 ms. AV sensed delay was 150 ms. Estimated Blood Loss: Less than 50 ml. Complications: None; patient tolerated the procedure well. Disposition: 3 S to telemetry unit.- hemodynamically stable. Condition: Stable. No complications. Discussed with patient and her , patient will be discharged in 24 hours after device check and chest x-ray. Moderate conscious sedation time was 95 minutes. Patient was administered Versed, fentanyl and Dilaudid. Oxygen saturation hemodynamics and EKG were monitored closely
--- NOTE | 2023-07-04 13:16 | XR ---
EXAMINATION TYPE: XR chest 1V portable DATE OF EXAM: 07/04/2023 12:50 PM CLINICAL INDICATION:Female, 73 years old with history of Lead placement check; [facility] COMPARISON: Chest radiographs from 06/06/2023 TECHNIQUE: XR chest 1V portable Frontal view of the chest. FINDINGS: Lungs/Pleura: Blunting of the left costophrenic angle. There is no evidence of right pleural effusion , focal consolidation, or pneumothorax. Pulmonary vascularity: Unremarkable. Heart/mediastinum: Cardiomediastinal silhouette is unremarkable. Two lead cardiac conduction device o verlying the left hemithorax with lead tips projecting over the right ventricle and right atrium. Musculoskeletal: No acute osseous pathology. Other findings: None IMPRESSION: 1. Leads appear in appropriate position. 2. Small left pleural effusion.
[2023-07-04] MEDS: FUROSEMIDE 20 MG TAB PO SCH (15:27)
[2023-07-04] MEDS: FAMOTIDINE 20 MG/2 ML VIAL ONE (16:10)
[2023-07-04] MEDS: diphenhydrAMINE 50 MG/ML 1 ML VIAL ONE (16:10)
[2023-07-04] MEDS: methylPREDNISolone SOD SUCCI 125 MG/2 ML VIAL ONE (16:10)
[2023-07-04] MEDS: MELATONIN 5 MG TABLET PO SCH (20:02)
[2023-07-04] MEDS: QUEtiapine 50 MG TAB PO SCH (20:03)
[2023-07-04] MEDS: ACETAMINOPHEN TAB 325 MG TAB PO PRN (20:03)
[2023-07-04] MEDS: SYMBICORT 80-4.5 MCG INHALER INHALATION SCH (20:46)
[2023-07-04] MEDS: FUROSEMIDE 20 MG TAB PO STA (21:55)
[2023-07-04] MEDS: METOPROLOL TARTRATE 25 MG TAB PO SCH (21:56)
[2023-07-05 02:17] VITALS: PULSE 77; TEMP 97.9
[2023-07-05 09:13] VITALS: BP 141/65; RESP 18
--- NOTE | 2023-07-05 09:52 | XR ---
EXAMINATION TYPE: XR chest 2V DATE OF EXAM: 07/05/2023 COMPARISON: 07/04/2023 HISTORY: 73-year-old female lead placement check TECHNIQUE: Frontal and lateral views FINDINGS: ACDF hardware partially seen. Left anterior chest wall pacemaker generator with right atrial and vent ricular leads. No appreciable pneumothorax. Mild hyperinflation. Heart normal size. There is a ongoin g small left pleural effusion and left basilar opacity. Mild hyperinflation. IMPRESSION: 1. COPD. Ongoing small left pleural effusion with adjacent atelectasis and/or consolidation. 2. Left anterior chest wall pacemaker generator with right atrial and right ventricular leads. No karen reciable pneumothorax.
--- NOTE | 2023-07-05 10:03 | P.DS ---
Providers Expected date of discharge: 07/05/23 Attending physician: Nata Pollard Primary care physician: Ana Maria Caraballo [facility] Course: This is a 73-year-old female patient of Dr. Pollard brought into the hospital due to high-grade second-degree AV block with symptoms of near syncope and right bundle branch block. Patient underwent dual-chamber permanent pacemaker implantation and has had no postprocedure complications. Device check has been completed this morning by academic manager. Chest x-ray done yesterday reveals that leads appear in appropriate position. Small left pleural effusion. Repeat chest x-ray this morning left anterior chest wall pacemaker generator with right atrial and right ventricular leads. No appreciable pneumothorax. Patient will be discharged home today in stable condition and follow-up with Dr. AGUS Pollard in 1 week. Patient Condition at Discharge: Good Plan - Discharge Summary Discharge Rx Participant: No New Discharge Prescriptions: New Metoprolol Tartrate [Lopressor] 25 mg PO BID #60 tab Continue QUEtiapine [SEROquel] 50 mg PO HS Melatonin 10 mg PO HS Unk Co Q10 1 tab PO DAILY Fluticasone Propion/Salmeterol [Fluticasone-Salmeterol 100-50] 1 puff INHALATION RT-BID Albuterol Sulfate [Albuterol Sulfate Hfa] 2 puff INHALATION RT-QID PRN PRN Reason: Shortness Of Breath Losartan [Cozaar] 50 mg PO DAILY #30 tab Furosemide [Lasix] 20 mg PO BID@0900,1600 #60 tab Benzonatate [Tessalon Perles] 100 mg PO TID PRN #10 cap PRN Reason: Cough Unk Multi Vitamin 1 tab PO DAILY Unk Green Tea Supplement 1 tab PO DAILY diphenhydrAMINE HCL [Benadryl] 25 mg PO HS Discharge Medication List QUEtiapine [SEROquel] 50 mg PO HS 02/28/21 [History] Albuterol Sulfate [Albuterol Sulfate Hfa] 2 puff INHALATION RT-QID PRN 06/14/23 [History] Fluticasone Propion/Salmeterol [Fluticasone-Salmeterol 100-50] 1 puff INHALATION RT-BID 06/14/23 [History] Melatonin 10 mg PO HS 06/14/23 [History] Benzonatate [Tessalon Perles] 100 mg PO TID PRN #10 cap 06/18/23 [Rx] Furosemide [Lasix] 20 mg PO BID@0900,1600 #60 tab 06/18/23 [Rx] Losartan [Cozaar] 50 mg PO DAILY #30 tab 06/18/23 [Rx] Unk Co Q10 1 tab PO DAILY 07/03/23 [History] Unk Green Tea Supplement 1 tab PO DAILY 07/03/23 [History] Unk Multi Vitamin 1 tab PO DAILY 07/03/23 [History] diphenhydrAMINE HCL [Benadryl] 25 mg PO HS 07/03/23 [History] Metoprolol Tartrate [Lopressor] 25 mg PO BID #60 tab 07/05/23 [Rx] Follow up Appointment(s)/Referral(s): Nata Pollard MD [STAFF PHYSICIAN] - 1 Week
--- NOTE | 2023-07-05 10:39 | DS ---
DISCHARGE SUMMARY DIAGNOSES: 1. High-grade AV block with right bundle branch block and near syncope. 2. Recent hospitalization with multiple medical problems. HOSPITAL COURSE: Ms. Almaraz was brought into the hospital for an elective dual-chamber pacemaker. Procedure was performed on 07/04/2023 uneventfully. Postprocedure course was uneventful. The device has been checked this morning. It is functioning well. Parameters are good. P waves are 1.0, somewhat lower, but still acceptable. Thresholds are good. Impedance is good. Chest x-ray both yesterday and today are unremarkable. I talked to the patient and her at length today. I explained to them the importance of wearing the sling and keeping her upper arm on the left side closer to her body and avoid any strenuous activity. Advised to take all her medications. She got 40 mg of Lasix IV push today and she will be on 2.5 mg of metolazone 45 minutes before Lasix for the next 6 days and I will see her on the in the office. Advised to be compliant with medications. I also added 25 mg of metoprolol tartrate twice a day and she will resume the losartan and also Lasix will be 40 mg in the morning, 20 mg in the afternoon with metolazone 2.5 mg 45 minutes before a.m. Lasix. PHYSICAL EXAMINATION: VITAL SIGNS: At the time of discharge, stable. NECK: No JVD. CARDIOVASCULAR: S1, S2 heard normally. LUNGS: Revealed diminished air entry over both bases. ABDOMEN: Soft. EXTREMITIES: Lower extremities revealed bilateral 2+ edema and diminished pulses. CENTRAL NERVOUS SYSTEM: Grossly no focal deficits. The patient will be discharged today. All discharge instructions were given. MMODL / IJN: [id number] /
[2023-07-05] MEDS: FUROSEMIDE 20 MG TAB PO SCH (11:09)
[2023-07-05] MEDS: LOSARTAN 50 MG TAB PO SCH (11:23)
[2023-07-05] MEDS: FUROSEMIDE 10 MG/ML 4 ML VIAL IV STA (11:23)
[2023-07-06] MEDS ORDERED: FAMOTIDINE 20 MG TAB PO SCH (09:00)
== END 2023-07-05 11:27 | disposition home or self-care (01) ==
LOC: CATHEP 07:33 → 6NMEDSUR 13:24 → CATHEP 07-05 11:27
PROVIDERS: ATTEND Internal Medicine Interventional Cardiology
DX: I44.1 Atrioventricular block, second degree (principal); I45.10 Unspecified right bundle-branch block; J44.9 Chronic obstructive pulmonary disease, unspecified; J90 Pleural effusion, not elsewhere classified; Z79.899 Other long term (current) drug therapy
CPT/HCPCS: 94640 ×2; 33208; 85018; 82810; 71045; 71046; C1892; C1898; C1769; C1785; J2250; J1200 ×2; J1940; J0690; J2001; J3010; J3490; J1170; Q9967; J2919

== ENCOUNTER 2024-07-26 09:45 | Emergency (ER) | payer MEDICARE ==
--- NOTE | 2024-07-26 10:22 | ED ---
General Adult HPI - General Chief complaint: Abdominal Pain Stated complaint: R side ABD Pain Time Seen by Provider: 07/26/24 10:01 Source: patient, RN notes reviewed Mode of arrival: wheelchair Limitations: no limitations - History of Present Illness Initial comments: 74 year old female presents to the ED for complaints of right mid back and rib pain. She has been having pain more acutely for a few weeks now but has had back pain for several years. The pain doesn't radiate anywhere and she has tried Tylenol and lidocaine patch without relief. She has a history of multiple back surgeries. Patient states she has pain in the ribs from coughing. She states she had a prior rib fracture. She denies abdominal complaints no left-sided chest pain no injuries no headache or dizziness. - Related Data Home Medications Medication Instructions Recorded Confirmed QUEtiapine [SEROquel] 50 mg PO HS 02/28/21 07/04/23 Albuterol Sulfate [Albuterol 2 puff INHALATION RT-QID PRN 06/14/23 07/04/23 Sulfate Hfa] Fluticasone Propion/Salmeterol 1 puff INHALATION RT-BID 06/14/23 07/04/23 [Fluticasone-Salmeterol 100-50] Melatonin 10 mg PO HS 06/14/23 07/04/23 Unk Co Q10 1 tab PO DAILY 07/03/23 07/04/23 Unk Green Tea Supplement 1 tab PO DAILY 07/03/23 07/04/23 Unk Multi Vitamin 1 tab PO DAILY 07/03/23 07/04/23 diphenhydrAMINE HCL [Benadryl] 25 mg PO HS 07/03/23 07/04/23 Previous Rx's Medication Instructions Recorded Benzonatate [Tessalon Perles] 100 mg PO TID PRN #10 cap 06/18/23 Furosemide [Lasix] 20 mg PO BID@0900,1600 #60 tab 06/18/23 Losartan [Cozaar] 50 mg PO DAILY #30 tab 06/18/23 Metoprolol Tartrate [Lopressor] 25 mg PO BID #60 tab 07/05/23 traMADol HCl [Ultram] 50 mg PO Q6H PRN #20 tab 07/26/24 Allergies Allergy/AdvReac Type Severity Reaction Status Date / Time azithromycin Allergy Rash/Hives Verified 07/26/24 09:58 bee venom protein (honey bee) Allergy Anaphylaxis Verified 07/26/24 09:58 codeine Allergy Rash/Hives Verified 07/26/24 09:58 Iodinated Contrast Media Allergy Anaphylaxis Verified 07/26/24 09:58 [Iodinated Contrast Media - Oral and] Review of Systems ROS Statement: Those systems with pertinent positive or pertinent negative responses have been documented in the HPI. ROS Other: All systems not noted in ROS Statement are negative. Past Medical History Past Medical History: Asthma, COPD, Hypertension Additional Past Medical History / Comment(s): emphysema, leah lower leg edema. recent admit for Bradycardia, see Dr Pollard H&P History of Any Multi-Drug Resistant Organisms: None Reported Past Surgical History: Back Surgery, Hysterectomy Additional Past Surgical History / Comment(s): rhinoplasty, colonoscopy Past Anesthesia/Blood Transfusion Reactions: No Reported Reaction Past Psychological History: No Psychological Hx Reported Smoking Status: Never smoker, Second hand smoke exposure Past Alcohol Use History: None Reported Past Drug Use History: None Reported - Past Family History Father Additional Family Medical History / Comment(s): diverticulosis General Exam Limitations: no limitations General appearance: alert, in no apparent distress Head exam: Present: atraumatic, normocephalic, normal inspection Eye exam: Present: normal appearance, PERRL, EOMI. Absent: scleral icterus, conjunctival injection, periorbital swelling Neck exam: Present: normal inspection, full ROM. Absent: tenderness, meningismus, lymphadenopathy Respiratory exam: Present: normal lung sounds bilaterally, chest wall tende rness. Absent: respiratory distress, wheezes, rales, rhonchi, stridor Cardiovascular Exam: Present: regular rate, normal rhythm, normal heart sounds. Absent: systolic murmur, diastolic murmur, rubs, gallop, clicks Extremities exam: Present: normal inspection, full ROM, normal capillary refill. Absent: tenderness, pedal edema, joint swelling, calf tenderness Back exam: Present: normal inspection, full ROM, tenderness (R rib region). Absent: paraspinal tenderness, vertebral tenderness Neurological exam: Present: alert, oriented X3, reflexes normal. Absent: motor sensory deficit Course Vital Signs 07/26/24 07/26/24 07/26/24 09:51 10:52 11:25 Temperature 97.9 F 98.1 F Pulse Rate 87 74 74 Respiratory 17 20 20 Rate Blood Pressure 123/76 108/61 123/75 O2 Sat by Pulse 97 93 L 91 L Oximetry Medical Decision Making - Medical Decision Making Was pt. sent in by a medical professional or institution (RICHARD Clark, MANAGER SOUND, urgent care, hospital, or senior care...) When possible be specific @ -No Did you speak to anyone other than the patient for history (EMS, parent, family, police, friend...)? What history was obtained from this source @ -No Did you review nursing and triage notes (agree or disagree)? Why? @ -I reviewed and agree with nursing and triage notes Were old charts reviewed (outside hosp., previous admission, EMS record, old EKG, old radiological studies, urgent care reports/EKG's, senior care records)? Report findings @ -No old charts were reviewed Differential Diagnosis (chest pain, altered mental status, abdominal pain women, abdominal pain men, vaginal bleeding, weakness, fever, dyspnea, syncope, headache, dizziness, GI bleed, back pain, seizure, CVA, palpatations, mental health, musculoskeletal)? @ -Rib contusion rib fracture pneumonia pneumothorax chest wall pain EKG interpreted by me (3pts min.). @ -None X-rays interpreted by me (1pt min.). @ -Chest x-ray with rib series right showing 6 and seventh rib fracture no pneumothorax CT interpreted by me (1pt min.). @ -None done U/S interpreted by me (1pt. min.). @ -None done What testing was considered but not performed or refused? (CT, X-rays, U/S, labs)? Why? @ -None What meds were considered but not given or refused? Why? @ -None Did you discuss the management of the patient with other professionals (professionals i.e. RICHARD Clark, MANAGER SOUND, lab, RT, psych nurse, web content & social media manager, shank scourer, teacher, navy airspace officer, child welfare caseworker)? Give summary @ -No Was smoking cessation discussed for >3mins.? @ -No Was critical care preformed (if so, how long)? @ -No Were there social determinants of health that impacted care today? How? (Homelessness, low income, unemployed, alcoholism, drug addiction, transportation, low edu. Level, literacy, decrease access to med. care, usp, rehab)? @ -No Was there de-escalation of care discussed even if they declined (Discuss DNR or withdrawal of care, Hospice)? DNR status @ -No What co-morbidities impacted this encounter? (DM, HTN, Smoking, COPD, CAD, Cancer, CVA, ARF, Chemo, Hep., AIDS, mental health diagnosis, sleep apnea, morbid obesity)? @ -None Was patient admitted / discharged? Hospital course, mention meds given and route, prescriptions, significant lab abnormalities, going to OR and other pertinent info. @ -Discharge patient has rib fractures noted she states she had 1 prior in this area. Patient does have some mild point tenderness and no signs distress will be discharged in stable condition return parameters drake. Undiagnosed new problem with uncertain prognosis? @ -No Drug Therapy requiring intensive monitoring for toxicity (Heparin, Nitro, Insulin, Cardizem)? @ -No Were any procedures done? @ -No Diagnosis/symptom? @ -rib Fracture Acute, or Chronic, or Acute on Chronic? @ -Acute Uncomplicated (without systemic symptoms) or Complicated (systemic symptoms)? @ -[Uncomplicated Side effects of treatment? @ -No Exacerbation, Progression, or Severe Exacerbation? @ -No Poses a threat to life or bodily function? How? (Chest pain, [place], [place], pneumonia, PE, COPD, DKA, ARF, appy, cholecystitis, CVA, Diverticulitis, Homicidal, Suicidal, threat to staff... and all critical care pts) @ -No Disposition Clinical Impression: Rib fracture Disposition: HOME SELF-CARE Condition: Stable Instructions (If sedation given, give patient instructions): Rib Fracture (ED) Additional Instructions: Please return to the Emergency Department if symptoms worsen or any other concerns. Prescriptions: traMADol HCl [Ultram] 50 mg PO Q6H PRN #20 tab PRN Reason: Pain Is patient prescribed a controlled substance at d/c from ED?: Yes When asked, does pt state using other controlled substances?: No If prescribed controlled substance>3 days was MAPS reviewed?: Yes If opioid is for acute pain is fill amount 7 days or less?: No If Rx opioid, was Start Talking consent form obtained?: No Referrals: Ana Maria Caraballo DO [Primary Care Provider] - 1-2 days Time of Disposition: 11:18
[2024-07-26] MEDS: HYDROmorphone 1 MG/ML 1 ML SYRINGE IM STA (10:31)
--- NOTE | 2024-07-26 10:55 | XR ---
EXAMINATION TYPE: XR ribs RT w pa chest xray DATE OF EXAM: 07/26/2024 10:28 AM COMPARISON: 1424. CLINICAL INDICATION: Female, 74 years old with history of pain; PHH, pain TECHNIQUE: XR ribs RT w pa chest xray; Frontal and oblique views of the ribs with frontal chest radio graph. FINDINGS: Cortical step-off of right rib 6 and 7 seen. The remainder of the ribs have a normal appear ance. No evidence of fracture. Overall, the lungs are clear. The cardiac silhouette is normal in si ze. The remaining osseous structures are intact. Cardiac conduction leads remain in the right ventricle and atrium. Surgical changes to the cervical s pine. IMPRESSION: Questionable right rib 6 and 7 fractures. Consider clinical correlation with point tenderness. [facility], , 07/26/2024 10:52 AM
[2024-07-26 10:56] VITALS: PULSE 74; RESP 20
[2024-07-26 11:26] VITALS: BP 123/75; TEMP 98.1
== END 2024-07-26 11:26 | disposition home or self-care (01) ==
LOC: EC 09:45
DX: S22.41XA Multiple fractures of ribs, right side, initial encounter for closed fracture (principal); Z91.030 Bee allergy status; Z91.041 Radiographic dye allergy status; Z88.5 Allergy status to narcotic agent; Z88.1 Allergy status to other antibiotic agents; Z77.22 Contact with and (suspected) exposure to environmental tobacco smoke (acute) (chronic); X50.9XXA Other and unspecified overexertion or strenuous movements or postures, initial encounter
CPT/HCPCS: 71101; 99284; 96372; J1171